=== PATIENT | female | born 1975 | race Hispanic/Latino ===

== ENCOUNTER → 2017-10-05 | Outpatient (CLI) | payer MEDICAID ==
[~2017-10-05] MED LIST: FURO20TA4 PO; LACT10SO PO; LEVO25TA54 PO; PANT20TA12 PO; SPIR25TA PO
== END | disposition home or self-care (01) ==
LOC: RAH 07:58
PROVIDERS: ATTEND Internal Medicine
DX: K74.60 Unspecified cirrhosis of liver (principal)
CPT/HCPCS: 76700; 93975

== ENCOUNTER → 2018-10-12 | Outpatient (CLI) | payer MEDICARE ==
[2018-10-12 09:37] LABS: BASOPHILS % (AUTO) 0.5 % (0.0-5.0); EOSINOPHILS % (AUTO) 2.8 % (0.0-8.0); HEMATOCRIT 35.9 % (36-48); LYMPHOCYTES % (AUTO) 22.4 % (21.0-51.0); MEAN CORPUSCULAR HEMOGLOBIN 31.5 pg (27.0-33.0); MEAN CORPUSCULAR HGB CONC 34.4 g/dL (32.0-36.0); MEAN CORPUSCULAR VOLUME 91.5 fL (79-99); MONOCYTES % (AUTO) 5.2 % (3.0-13.0); NEUTROPHILS % (AUTO) 69.1 % (40.0-77.0); PLATELET COUNT (AUTO) 120 K/uL (130-400); RED BLOOD CELL COUNT(AUTO) 3.92 MIL/uL (4.00-5.50); RED CELL DISTRIBUTION WIDTH 15.2 % (11.0-15.5); WHITE BLOOD COUNT (AUTO) 5.5 K/uL (4.8-10.8)
[2018-10-12 09:46] LABS: ALBUMIN 2.5 g/dL (3.5-5.0); BILIRUBIN,TOTAL 1.4 mg/dL (0.2-1.0); CREATININE 1.1 mg/dL (0.5-1.5); TOTAL PROTEIN, SERUM 7.2 g/dL (6.0-8.3)
[2018-10-12 09:50] LABS: INR 1.01 (0.85-1.15); PROTHROMBIN TIME 10.6 SEC (9.6-11.6)
== END | disposition home or self-care (01) ==
LOC: RAH 07:58
PROVIDERS: ATTEND Internal Medicine Gastroenterology
DX: K74.60 Unspecified cirrhosis of liver (principal); K80.20 Calculus of gallbladder without cholecystitis without obstruction
CPT/HCPCS: 36415; 76700; 80053; 82105; 85025; 85610; 93975

== ENCOUNTER 2019-06-16 07:31 | Day surgery (SDC) | payer MEDICARE ==
[~2019-06-16] VITALS: Ht 160 cm; Wt 98.0 kg
[~2019-06-16 07:31] MED LIST changes: +DICY10I IM; +RIFA550T PO; +SITA100T12 PO; +SODIUM CHLORIDE 0.9% 1000ML 1,000 ML IV ONE; +TRAM50TA4 PO
[2019-06-16 08:15] VITALS: BP 122/68
[2019-06-16] MEDS ORDERED: PROPOFOL 10 MG/ML 20ML VIAL IV ONE (08:32)
[2019-06-16 08:52] VITALS: BP 109/50
[2019-06-16 08:58] VITALS: BP 110/61
[2019-06-16 09:08] VITALS: BP 139/66
[2019-06-16 09:34] LABS: BILIRUBIN,DIRECT 0.3 mg/dL (0.0-0.3); BILIRUBIN,TOTAL 0.8 mg/dL (0.2-1.0); TOTAL PROTEIN, SERUM 5.8 g/dL (6.0-8.3)
== END 2019-06-16 09:38 | disposition home or self-care (01) ==
LOC: DAH 07:31
PROVIDERS: ATTEND Internal Medicine Gastroenterology
DX: R10.10 Upper abdominal pain, unspecified (principal); K80.50 Calculus of bile duct without cholangitis or cholecystitis without obstruction; K74.60 Unspecified cirrhosis of liver; K21.9 Gastro-esophageal reflux disease without esophagitis; E66.9 Obesity, unspecified; E11.9 Type 2 diabetes mellitus without complications; E03.9 Hypothyroidism, unspecified; I85.00 Esophageal varices without bleeding; K29.70 Gastritis, unspecified, without bleeding; Z68.34 Body mass index [BMI] 34.0-34.9, adult; Z98.890 Other specified postprocedural states; Z79.899 Other long term (current) drug therapy
CPT/HCPCS: 36415; 43259; 80076; 81025; 82948; A4215; A4221; A4222; A4223; A4606; A4620; A4663; J2704; J7030

== ENCOUNTER 2019-06-26 08:04 | Day surgery (SDC) | payer MEDICARE ==
[2019-06-26] VITALS (16 sets, daily range): BP systolic 111–141; BP diastolic 53–74
[~2019-06-26] VITALS: Ht 160 cm; Wt 99.8 kg
[~2019-06-26 08:04] MED LIST changes: -DICY10I IM
[2019-06-26] MEDS ORDERED: IOHEXOL-350 50ML VIAL IV ONE (10:28)
[2019-06-26] MEDS ORDERED: INDOMETHACIN 50 MG SUPP.RECT RC SCH (10:30)
[2019-06-26] MEDS ORDERED: ONDANSETRON HCL 4 MG/2 ML VIAL ONE (11:37)
[2019-06-26] MEDS ORDERED: METOCLOPRAMIDE 10 MG/2 ML VIAL ONE (11:42)
== END 2019-06-26 13:30 | disposition home or self-care (01) ==
LOC: DAH 08:04 → ENDO 08:04
PROVIDERS: ATTEND Internal Medicine
DX: K80.50 Calculus of bile duct without cholangitis or cholecystitis without obstruction (principal); K74.60 Unspecified cirrhosis of liver; I85.00 Esophageal varices without bleeding; K29.70 Gastritis, unspecified, without bleeding; E11.9 Type 2 diabetes mellitus without complications; E03.9 Hypothyroidism, unspecified; E66.9 Obesity, unspecified; K21.9 Gastro-esophageal reflux disease without esophagitis; Z98.890 Other specified postprocedural states; Z79.899 Other long term (current) drug therapy; Z68.35 Body mass index [BMI] 35.0-35.9, adult
CPT/HCPCS: 43262; 43264; 74328; 82948; A4215; A4221; A4222; A4223; A4606; A4615; A4663; C1769; C1773; J2405; J2765; J7030; Q9967; 74330

== ENCOUNTER → 2019-11-20 | Outpatient (CLI) | payer MEDICARE ==
[~2019-11-20] MED LIST changes: -SODIUM CHLORIDE 0.9% 1000ML 1,000 ML IV ONE
== END | disposition home or self-care (01) ==
LOC: RAH 10:06
PROVIDERS: ATTEND Internal Medicine Gastroenterology
DX: K43.9 Ventral hernia without obstruction or gangrene (principal); R18.8 Other ascites; R16.1 Splenomegaly, not elsewhere classified
CPT/HCPCS: 76700; 93975

== ENCOUNTER → 2020-01-16 | Outpatient (CLI) | payer MEDICARE ==
[~2020-01-16] MED LIST changes: +ALBUMIN (HUMAN) 25% 200 ML IV SCH
[2020-01-16 09:10] LABS: HEMATOCRIT 32.7 % (36-48); MEAN CORPUSCULAR HEMOGLOBIN 29.6 pg (27.0-33.0); MEAN CORPUSCULAR VOLUME 89.6 fL (79-99); PLATELET COUNT (AUTO) 161 K/uL (130-400); RED BLOOD CELL COUNT(AUTO) 3.65 MIL/uL (4.00-5.50); RED CELL DISTRIBUTION WIDTH 15.9 % (11.0-15.5); WHITE BLOOD COUNT (AUTO) 5.3 K/uL (4.8-10.8)
--- NOTE | 2020-01-16 09:20 | NUR ---
U/S GD PARACENTESIS PROCEDURE PERFORMED BY DR. STEVEN. PUNCTURE SITE LEFT LOWER QUADRANT OF ABDOMEN AND PATIENT TOLERATED PROCEDURE WELL. TOTAL REMOVED 7.9 LITERS OF CLOUDY YELLOW FLUID. END OF PROCEDURE AT 0945. CATHETER REMOVED AND DRESSING APPLIED. NO BLEEDING NOTED. ALBUMIN 25% 50 GRAMS GIVEN DURING PROCEDURE PER [facility] ALBUMIN PROTOCOL. LEFT ANTECUBITAL PIV DC'D, BANDAID APPLIED, DRESSING DRY AND INTACT. DISCHARGE INSTRUCTIONS GIVEN TO PATIENT. PATIENT VERBALIZED UNDERSTANDING. PT DISCHARGED VIA W/C, STABLE, AAO X3 WITH NO C/O PAIN @ 1045. SPECIMEN SENT TO LAB.
[2020-01-16 09:23] LABS: BILIRUBIN,TOTAL 0.8 mg/dL (0.2-1.0); CREATININE 1.7 mg/dL (0.5-1.5); INR 0.94 (0.85-1.15); PROTHROMBIN TIME 10.2 SEC (9.6-11.6); TOTAL PROTEIN, SERUM 6.5 g/dL (6.0-8.3)
[2020-01-16 09:48] LABS: LYMPHOCYTES % (MANUAL) 8 % (22-44); MAN.DIFF COMMENT-IMPRESSION MANUAL DIFFERENTIAL; MONOCYTES % (MANUAL) 4 % (2-9); PLATELET MORPHOLOGY COMMENT ADEQUATE; SEGMENTED NEUTROPHILS % 88 % (40-70)
[2020-01-16 13:53] LABS: APPEARANCE BODY FLUID CLEAR (CLEAR); BODY FLUID RBC 292 /cu. mm.; BODY FLUID WBC 95 /cu. mm.; COLOR,BODY FLUID YELLOW (LT YELLOW); SPECIMENTYPE,BODY FLUID ASCITES
[2020-01-16 13:59] LABS: BF LYMPHOCYTE 32 %; BF MESOTHELIAL 43 %; BF MONOCYTE 16 %
[2020-01-16 14:01] LABS: TOTAL VOLUME,BODY FLUID 7900 mL
== END ==
LOC: RAH 07:49
PROVIDERS: ATTEND Internal Medicine Gastroenterology
DX: R18.8 Other ascites (principal); K74.60 Unspecified cirrhosis of liver; E03.9 Hypothyroidism, unspecified; E11.9 Type 2 diabetes mellitus without complications; K21.9 Gastro-esophageal reflux disease without esophagitis; F17.200 Nicotine dependence, unspecified, uncomplicated; E66.9 Obesity, unspecified; Z90.49 Acquired absence of other specified parts of digestive tract; Z79.82 Long term (current) use of aspirin; Z83.3 Family history of diabetes mellitus; Z82.49 Family history of ischemic heart disease and other diseases of the circulatory system; Z79.899 Other long term (current) drug therapy; Z79.84 Long term (current) use of oral hypoglycemic drugs; Z79.890 Hormone replacement therapy; Z98.890 Other specified postprocedural states
CPT/HCPCS: 36415; 49083; 80053; 85025; 85610; 87071; 87205; 88112; 88305; 89051; A4215; P9046

== ENCOUNTER → 2020-01-30 | Outpatient (CLI) | payer MEDICARE ==
[~2020-01-30] MED LIST changes: +ALBUMIN (HUMAN) 25% 200 ML IV ONE; -ALBUMIN (HUMAN) 25% 200 ML IV SCH; -PANT20TA12 PO; +PANT20TA18 PO
--- NOTE | 2020-01-30 11:50 | NUR ---
U/S GD PARACENTESIS PROCEDURE PERFORMED BY DR. MARS. PUNCTURE SITE LEFT LOWER QUADRANT OF ABDOMEN AND PATIENT TOLERATED PROCEDURE WELL. TOTAL REMOVED 8.2 LITERS OF CLOUDY YELLOW FLUID. END OF PROCEDURE AT 1220. CATHETER REMOVED AND DRESSING APPLIED. NO BLEEDING NOTED. ALBUMIN 25% 50 GRAMS GIVEN DURING PROCEDURE PER [facility] ALBUMIN PROTOCOL. RIGHT HAND PIV DC'D, BANDAID APPLIED, DRESSING DRY AND INTACT. DISCHARGE INSTRUCTIONS GIVEN TO PATIENT. PATIENT VERBALIZED UNDERSTANDING. PT DISCHARGED AMBULATORY, STABLE, AAO X3 WITH NO C/O PAIN. SPECIMEN SENT TO LAB.
[2020-01-30 18:49] LABS: APPEARANCE BODY FLUID CLEAR (CLEAR); COLOR,BODY FLUID YELLOW (LT YELLOW); SPECIMENTYPE,BODY FLUID ASCITES; TOTAL VOLUME,BODY FLUID 8200 mL
[2020-01-30 18:54] LABS: BODY FLUID RBC 84 /cu. mm.; BODY FLUID WBC 107 /cu. mm.
[2020-01-30 19:39] LABS: BF LYMPHOCYTE 59 %; BF MONOCYTE 1 %; BF OTHER CELLS 5
== END ==
LOC: RAH 10:46
PROVIDERS: ATTEND Internal Medicine Gastroenterology
DX: R18.8 Other ascites (principal); K74.60 Unspecified cirrhosis of liver
CPT/HCPCS: 49083; 87071; 87205; 88112; 88305; 89051; A4215; P9046; 96365

== ENCOUNTER → 2020-03-18 | Outpatient (CLI) | payer MEDICARE ==
[~2020-03-18] MED LIST changes: -ALBUMIN (HUMAN) 25% 200 ML IV ONE; +ALBUMIN (HUMAN) 25% 200 ML IV SCH; +PANT20TA12 PO; -PANT20TA18 PO
--- NOTE | 2020-03-18 10:55 | NUR ---
U/S GUIDED PARACENTESIS PROCEDURE PERFORMED BY DR. GR. PUNCTURE SITE LEFT LOWER QUADRANT AND PATIENT TOLERATED PROCEDURE WELL. TOTAL REMOVED 6.2 LITERS OF CLOUDY YELLOW ASCITES FLUID. END OF PROCEDURE AT 1130. CATHETER REMOVED AND DRESSING APPLIED. NO BLEEDING NOTED. ALBUMIN 25% 50 GRAMS GIVEN IV PER ALBUMIN PROTOCOL. RIGHT HAND PIV DCD, BANDAID APPLIED, NO BLEEDING NOTED. DISCHARGE INSTRUCTION GIVEN TO PATIENT AND VERBALIZED UNDERSTANDING. DISCHARGED AMBULATORY @ 1200. AAO X 3 WITH NO C/O PAIN.
[2020-03-18 13:12] LABS: APPEARANCE BODY FLUID CLEAR (CLEAR); BODY FLUID RBC 258 /cu. mm.; BODY FLUID WBC 147 /cu. mm.; COLOR,BODY FLUID YELLOW (LT YELLOW); SPECIMENTYPE,BODY FLUID ASCITES
[2020-03-18 13:13] LABS: TOTAL VOLUME,BODY FLUID 6200 mL
[2020-03-18 14:00] LABS: BF LYMPHOCYTE 31 %; BF MESOTHELIAL 48 %; BF MONOCYTE 7 %
== END | disposition home or self-care (01) ==
LOC: RAH 09:52
PROVIDERS: ATTEND Internal Medicine Gastroenterology
DX: R18.8 Other ascites (principal); K74.60 Unspecified cirrhosis of liver; I85.00 Esophageal varices without bleeding; K29.70 Gastritis, unspecified, without bleeding; K21.9 Gastro-esophageal reflux disease without esophagitis; K43.9 Ventral hernia without obstruction or gangrene; E11.9 Type 2 diabetes mellitus without complications; E03.9 Hypothyroidism, unspecified; Z90.49 Acquired absence of other specified parts of digestive tract; Z79.899 Other long term (current) drug therapy
CPT/HCPCS: 49083; 87071; 87205; 89051; A4215; P9046; 96365

== ENCOUNTER → 2020-03-26 | Outpatient (CLI) | payer MEDICARE ==
--- NOTE | 2020-03-26 10:15 | NUR ---
U/S GUIDED PARACENTESIS PROCEDURE PERFORMED BY DR. BAIRD. PUNCTURE SITE LEFT LOWER QUADRANT AND PATIENT TOLERATED PROCEDURE WELL. TOTAL REMOVED 5.7 LITERS OF CLOUDY YELLOW ASCITES FLUID. END OF PROCEDURE AT 1045. CATHETER REMOVED AND DRESSING APPLIED. NO BLEEDING NOTED. ALBUMIN 25% 50 GRAMS GIVEN IV PER ALBUMIN PROTOCOL. RIGHT HAND PIV DCD, BANDAID APPLIED, NO BLEEDING NOTED. DISCHARGE INSTRUCTION GIVEN TO PATIENT AND VERBALIZED UNDERSTANDING. DISCHARGED AMBULATORY @ 1105. AAO X 3 WITH NO C/O PAIN.
[2020-03-26 10:34] LABS: BASOPHILS % (AUTO) 0.4 % (0.0-5.0); EOSINOPHILS % (AUTO) 1.1 % (0.0-8.0); HEMATOCRIT 32.7 % (36-48); MEAN CORPUSCULAR HEMOGLOBIN 30.3 pg (27.0-33.0); MEAN CORPUSCULAR HGB CONC 33.9 g/dL (32.0-36.0); MEAN CORPUSCULAR VOLUME 89.3 fL (79-99); MONOCYTES % (AUTO) 3.9 % (3.0-13.0); NEUTROPHILS % (AUTO) 83.1 % (40.0-77.0); PLATELET COUNT (AUTO) 145 K/uL (130-400); RED BLOOD CELL COUNT(AUTO) 3.66 MIL/uL (4.00-5.50); RED CELL DISTRIBUTION WIDTH 14.1 % (11.0-15.5); WHITE BLOOD COUNT (AUTO) 5.6 K/uL (4.8-10.8)
[2020-03-26 10:44] LABS: INR 0.97 (0.85-1.15); PROTHROMBIN TIME 10.5 SEC (9.6-11.6)
[2020-03-26 10:49] LABS: ALBUMIN 2.8 g/dL (3.5-5.0); BILIRUBIN,TOTAL 1.7 mg/dL (0.2-1.0); CREATININE 1.3 mg/dL (0.5-1.5); POTASSIUM 3.7 mmol/L (3.5-5.1)
[2020-03-26 15:13] LABS: APPEARANCE BODY FLUID CLEAR (CLEAR); BODY FLUID WBC 148 /cu. mm.; COLOR,BODY FLUID YELLOW (LT YELLOW); SPECIMENTYPE,BODY FLUID ASCITES; TOTAL VOLUME,BODY FLUID 5700 mL
[2020-03-26 15:14] LABS: BODY FLUID RBC 225 /cu. mm.
[2020-03-26 15:47] LABS: BF LYMPHOCYTE 41 %; BF OTHER CELLS 15
== END ==
LOC: RAH 09:33
PROVIDERS: ATTEND Internal Medicine Gastroenterology
DX: R18.8 Other ascites (principal); K74.60 Unspecified cirrhosis of liver; E03.9 Hypothyroidism, unspecified; K21.9 Gastro-esophageal reflux disease without esophagitis; E11.9 Type 2 diabetes mellitus without complications; E66.9 Obesity, unspecified; F17.200 Nicotine dependence, unspecified, uncomplicated; K43.9 Ventral hernia without obstruction or gangrene; Z79.899 Other long term (current) drug therapy; Z98.890 Other specified postprocedural states; Z72.89 Other problems related to lifestyle; Z83.3 Family history of diabetes mellitus; Z82.49 Family history of ischemic heart disease and other diseases of the circulatory system; Z90.49 Acquired absence of other specified parts of digestive tract; Z87.19 Personal history of other diseases of the digestive system; Z68.34 Body mass index [BMI] 34.0-34.9, adult; Z79.84 Long term (current) use of oral hypoglycemic drugs
CPT/HCPCS: 36415; 49083; 80053; 85025; 85610; 87071; 87205; 89051; A4215; P9046; 96365

== ENCOUNTER → 2020-04-02 | Outpatient (CLI) | payer MEDICARE ==
--- NOTE | 2020-04-02 10:20 | NUR ---
U/S GUIDED PARACENTESIS PROCEDURE PERFORMED BY DR. BAIRD. PUNCTURE SITE RIGHT LOWER QUADRANT AND PATIENT TOLERATED PROCEDURE WELL. TOTAL REMOVED 2.1 LITERS OF YELLOW CLOUDY ASCITES FLUID. END OF PROCEDURE AT 1045. CATHETER REMOVED AND DRESSING APPLIED. NO BLEEDING NOTED. ALBUMIN 25% 50 GRAMS GIVEN IV PER ALBUMIN PROTOCOL. RIGHT HAND PIV DC'D, SITE ASYMPTOMATIC. SPECIMEN SEND TO LAB
[2020-04-02 13:51] LABS: APPEARANCE BODY FLUID CLEAR (CLEAR); BODY FLUID WBC 171 /cu. mm.; COLOR,BODY FLUID YELLOW (LT YELLOW); SPECIMENTYPE,BODY FLUID ASCITES; TOTAL VOLUME,BODY FLUID 2100 mL
[2020-04-02 13:52] LABS: BODY FLUID RBC 198 /cu. mm.
[2020-04-02 13:56] LABS: BF LYMPHOCYTE 52 %; BF MESOTHELIAL 35 %
== END ==
LOC: RAH 09:19
PROVIDERS: ATTEND Internal Medicine Gastroenterology
DX: R18.8 Other ascites (principal); K74.60 Unspecified cirrhosis of liver; F17.200 Nicotine dependence, unspecified, uncomplicated; E03.9 Hypothyroidism, unspecified; K21.9 Gastro-esophageal reflux disease without esophagitis; E11.9 Type 2 diabetes mellitus without complications; K43.9 Ventral hernia without obstruction or gangrene; E66.9 Obesity, unspecified; Z83.3 Family history of diabetes mellitus; Z82.49 Family history of ischemic heart disease and other diseases of the circulatory system; Z68.34 Body mass index [BMI] 34.0-34.9, adult; Z98.890 Other specified postprocedural states; Z87.19 Personal history of other diseases of the digestive system; Z90.49 Acquired absence of other specified parts of digestive tract; Z72.89 Other problems related to lifestyle; Z79.01 Long term (current) use of anticoagulants; Z79.84 Long term (current) use of oral hypoglycemic drugs; Z79.890 Hormone replacement therapy
CPT/HCPCS: 49083; 87071; 87205; 89051; A4215; P9046

== ENCOUNTER → 2020-04-12 | Outpatient (CLI) | payer MEDICARE ==
[~2020-04-12] MED LIST changes: +ALBUMIN (HUMAN) 25% 200 ML IV PRN; -ALBUMIN (HUMAN) 25% 200 ML IV SCH
--- NOTE | 2020-04-12 13:14 | NUR ---
U/S GUIDED PARACENTESIS PROCEDURE PERFORMED BY DR. Joey MARS. PUNCTURE SITE LEFT LOWER QUADRANT AND PATIENT TOLERATED PROCEDURE WELL. TOTAL REMOVED 7.5 LITERS OF YELLOW CLOUDY ASCITES FLUID. END OF PROCEDURE AT 1045. CATHETER REMOVED AND DRESSING APPLIED. NO BLEEDING NOTED. ALBUMIN 25% 50 GRAMS GIVEN IV PER ALBUMIN PROTOCOL. RIGHT HAND PIV DC'D, SITE ASYMPTOMATIC. SPECIMEN SEND TO LAB. DISCHARGED AT 1115 VIA AMBULATION.
[2020-04-12 14:04] LABS: SPECIMENTYPE,BODY FLUID ASCITES
[2020-04-12 14:05] LABS: APPEARANCE BODY FLUID SLIGHTLY CLOUDY (CLEAR); COLOR,BODY FLUID YELLOW (LT YELLOW)
[2020-04-12 14:08] LABS: TOTAL VOLUME,BODY FLUID 7500 mL
[2020-04-12 14:09] LABS: BODY FLUID WBC 180 /cu. mm.
[2020-04-12 14:10] LABS: BODY FLUID RBC 608 /cu. mm.
[2020-04-12 14:14] LABS: BF LYMPHOCYTE 43 %; BF MONOCYTE 14 %
== END | disposition home or self-care (01) ==
LOC: RAH 09:48
PROVIDERS: ATTEND Internal Medicine Gastroenterology
DX: R18.8 Other ascites (principal); K74.60 Unspecified cirrhosis of liver
CPT/HCPCS: 49083; 87071; 87205; 89051; A4215

== ENCOUNTER → 2020-04-24 | Outpatient (CLI) | payer MEDICARE ==
[~2020-04-24] MED LIST changes: -ALBUMIN (HUMAN) 25% 200 ML IV PRN; +ALBUMIN (HUMAN) 25% 200 ML IV SCH; -PANT20TA12 PO; +PANT20TA18 PO
--- NOTE | 2020-04-24 10:15 | NUR ---
U/S GUIDED PARACENTESIS PROCEDURE PERFORMED BY DR. Michaelle BERNARD. PUNCTURE SITE RIGHT LOWER QUADRANT AND PATIENT TOLERATED PROCEDURE WELL. TOTAL REMOVED 4.2 LITERS OF YELLOW CLOUDY ASCITES FLUID. END OF PROCEDURE AT 0945. CATHETER REMOVED AND DRESSING APPLIED. NO BLEEDING NOTED. ALBUMIN 25% 25 GRAMS GIVEN IV PER ALBUMIN PROTOCOL. RIGHT HAND PIV DC'D, SITE ASYMPTOMATIC. SPECIMEN SEND TO LAB. DISCHARGED AT 1015 VIA AMBULATION
[2020-04-24 13:49] LABS: APPEARANCE BODY FLUID CLOUDY (CLEAR); BODY FLUID RBC 442 /cu. mm.; BODY FLUID WBC 175 /cu. mm.; COLOR,BODY FLUID YELLOW (LT YELLOW); SPECIMENTYPE,BODY FLUID ASCITES; TOTAL VOLUME,BODY FLUID 4200 mL
[2020-04-24 14:29] LABS: BF LYMPHOCYTE 18 %; BF MESOTHELIAL 68 %; BF MONOCYTE 6 %
== END ==
LOC: RAH 10:00
PROVIDERS: ATTEND Internal Medicine Gastroenterology
DX: R18.8 Other ascites (principal)
CPT/HCPCS: 49083; 87071; 87205; 89051; A4215; P9046; 96365

== ENCOUNTER → 2020-04-30 | Outpatient (CLI) | payer MEDICARE ==
[2020-04-30 09:10] LABS: BASOPHILS % (AUTO) 0.2 % (0.0-5.0); EOSINOPHILS % (AUTO) 1.8 % (0.0-8.0); LYMPHOCYTES % (AUTO) 11.9 % (21.0-51.0); MEAN CORPUSCULAR HEMOGLOBIN 30.5 pg (27.0-33.0); MEAN CORPUSCULAR HGB CONC 34.8 g/dL (32.0-36.0); MEAN CORPUSCULAR VOLUME 87.6 fL (79-99); MONOCYTES % (AUTO) 4.6 % (3.0-13.0); NEUTROPHILS % (AUTO) 80.8 % (40.0-77.0); PLATELET COUNT (AUTO) 114 K/uL (130-400); RED BLOOD CELL COUNT(AUTO) 3.54 MIL/uL (4.00-5.50); RED CELL DISTRIBUTION WIDTH 14.9 % (11.0-15.5); WHITE BLOOD COUNT (AUTO) 4.4 K/uL (4.8-10.8)
--- NOTE | 2020-04-30 09:20 | NUR ---
U/S GUIDED PARACENTESIS PROCEDURE PERFORMED BY DR. BLUE. PUNCTURE SITE LEFT LOWER QUADRANT AND PATIENT TOLERATED PROCEDURE WELL. TOTAL REMOVED 4.9 LITERS OF YELLOW CLOUDY ASCITES FLUID. END OF PROCEDURE AT 0945. CATHETER REMOVED AND DRESSING APPLIED. NO BLEEDING NOTED. ALBUMIN 25% 50 GRAMS GIVEN IV PER ALBUMIN PROTOCOL. LEFT ANTECUBITAL PIV DC'D, BANDAID APPLIED, DRESSING DRY AND INTACT. DISCHARGE INSTRUCTIONS GIVEN TO PATIENT. PATIENT VERBALIZED UNDERSTANDING. PT DISCHARGED @ 1005. PT STABLE, AAO X 3 WITH NO C/O PAIN.
[2020-04-30 09:22] LABS: INR 0.92 (0.85-1.15)
[2020-04-30 09:28] LABS: ALBUMIN 2.7 g/dL (3.5-5.0); BILIRUBIN,TOTAL 1.3 mg/dL (0.2-1.0); CREATININE 1.5 mg/dL (0.5-1.5); POTASSIUM 3.8 mmol/L (3.5-5.1); TOTAL PROTEIN, SERUM 6.5 g/dL (6.0-8.3)
[2020-04-30 13:05] LABS: BF LYMPHOCYTE 17 %; BF MESOTHELIAL 70 %; BF MONOCYTE 4 %
[2020-04-30 13:06] LABS: APPEARANCE BODY FLUID CLEAR (CLEAR); BODY FLUID RBC 492 /cu. mm.; BODY FLUID WBC 197 /cu. mm.; COLOR,BODY FLUID YELLOW (LT YELLOW); SPECIMENTYPE,BODY FLUID ASCITES
[2020-04-30 13:12] LABS: TOTAL VOLUME,BODY FLUID 4900 mL
== END ==
LOC: RAH 08:35
PROVIDERS: ATTEND Internal Medicine Gastroenterology
DX: R18.8 Other ascites (principal)
CPT/HCPCS: 36415; 49083; 80053; 85025; 85610; 87071; 87205; 89051; A4215; P9046; 96365

== ENCOUNTER → 2020-05-07 | Outpatient (CLI) | payer MEDICARE ==
[~2020-05-07] MED LIST changes: +ALBUMIN (HUMAN) 25% 200 ML IV ONE; -ALBUMIN (HUMAN) 25% 200 ML IV SCH
--- NOTE | 2020-05-07 09:35 | NUR ---
U/S GUIDED PARACENTESIS PROCEDURE PERFORMED BY DR. MARS. PUNCTURE SITE LEFT LOWER QUADRANT AND PATIENT TOLERATED PROCEDURE WELL. TOTAL REMOVED 4.2 LITERS OF YELLOW CLOUDY ASCITES FLUID. END OF PROCEDURE AT 0950. CATHETER REMOVED AND DRESSING APPLIED. NO BLEEDING NOTED. ALBUMIN 25% 50 GRAMS GIVEN IV PER ALBUMIN PROTOCOL. LEFT ANTECUBITAL PIV DC'D, BANDAID APPLIED, DRESSING DRY AND INTACT. DISCHARGE INSTRUCTIONS GIVEN TO PATIENT. PATIENT VERBALIZED UNDERSTANDING. PT DISCHARGED AMBULATORY @ 1020 PT STABLE, AAO X 3 WITH NO C/O PAIN.
[2020-05-07 14:24] LABS: APPEARANCE BODY FLUID CLEAR (CLEAR); COLOR,BODY FLUID YELLOW (LT YELLOW); SPECIMENTYPE,BODY FLUID ASCITES
[2020-05-07 14:25] LABS: BODY FLUID RBC 261 /cu. mm.; BODY FLUID WBC 277 /cu. mm.; TOTAL VOLUME,BODY FLUID 4200 mL
[2020-05-07 14:35] LABS: BF LYMPHOCYTE 18 %; BF MESOTHELIAL 43 %; BF MONOCYTE 8 %
== END | disposition home or self-care (01) ==
LOC: RAH 08:59
PROVIDERS: ATTEND Internal Medicine Gastroenterology
DX: R18.8 Other ascites (principal); K74.60 Unspecified cirrhosis of liver; E03.9 Hypothyroidism, unspecified; E11.9 Type 2 diabetes mellitus without complications; E66.9 Obesity, unspecified; K21.9 Gastro-esophageal reflux disease without esophagitis; K43.9 Ventral hernia without obstruction or gangrene; F17.200 Nicotine dependence, unspecified, uncomplicated; Z90.49 Acquired absence of other specified parts of digestive tract; Z98.890 Other specified postprocedural states; Z79.899 Other long term (current) drug therapy; Z79.84 Long term (current) use of oral hypoglycemic drugs; Z72.89 Other problems related to lifestyle; Z79.890 Hormone replacement therapy; Z68.34 Body mass index [BMI] 34.0-34.9, adult
CPT/HCPCS: 49083; 87071; 87205; 89051; A4215; P9046; 96365

== ENCOUNTER → 2020-05-17 | Outpatient (CLI) | payer MEDICARE ==
[~2020-05-17] MED LIST changes: -ALBUMIN (HUMAN) 25% 200 ML IV ONE
[2020-05-17 09:02] LABS: HEMATOCRIT 34.9 % (36-48); MEAN CORPUSCULAR HEMOGLOBIN 30.8 pg (27.0-33.0); MEAN CORPUSCULAR VOLUME 88.1 fL (79-99); PLATELET COUNT (AUTO) 165 K/uL (130-400); RED BLOOD CELL COUNT(AUTO) 3.96 MIL/uL (4.00-5.50); RED CELL DISTRIBUTION WIDTH 14.4 % (11.0-15.5); WHITE BLOOD COUNT (AUTO) 8.3 K/uL (4.8-10.8)
[2020-05-17 09:20] LABS: INR 0.95 (0.85-1.15); PROTHROMBIN TIME 10.3 SEC (9.6-11.6)
[2020-05-17 09:21] LABS: ALBUMIN 2.6 g/dL (3.5-5.0); BILIRUBIN,TOTAL 2.2 mg/dL (0.2-1.0); CREATININE 1.3 mg/dL (0.5-1.5); POTASSIUM 4.3 mmol/L (3.5-5.1); TOTAL PROTEIN, SERUM 6.5 g/dL (6.0-8.3)
--- NOTE | 2020-05-17 09:30 | NUR ---
U/S GUIDED PARACENTESIS PROCEDURE PERFORMED BY DR. MARS. PUNCTURE SITE RIGHT UPPER QUADRANT AND PATIENT TOLERATED PROCEDURE WELL. TOTAL REMOVED 6.0 LITERS OF YELLOW CLOUDY ASCITES FLUID. END OF PROCEDURE AT 1005. CATHETER REMOVED AND DRESSING APPLIED. NO BLEEDING NOTED. ALBUMIN 25% 50 GRAMS GIVEN IV PER ALBUMIN PROTOCOL. LEFT UPPER ARM PIV DC'D, BANDAID APPLIED, DRESSING DRY AND INTACT. DISCHARGE INSTRUCTIONS GIVEN TO PATIENT. PATIENT VERBALIZED UNDERSTANDING. PT DISCHARGED VIA AMBULATORY @ 1025. PT STABLE, AAO X 3 WITH NO C/O PAIN.
[2020-05-17 09:45] LABS: BASOPHILS % (MANUAL) 1 % (0-2); EOSINOPHILS % (MANUAL) 3 % (1-6); LYMPHOCYTES % (MANUAL) 13 % (22-44); MAN.DIFF COMMENT-IMPRESSION MANUAL DIFFERENTIAL; MONOCYTES % (MANUAL) 5 % (2-9); PLATELET MORPHOLOGY COMMENT ADEQUATE; SEGMENTED NEUTROPHILS % 78 % (40-70)
[2020-05-17] MEDS: ALBUMIN (HUMAN) 25% 200 ML IV SCH (10:52)
[2020-05-17 15:16] LABS: SPECIMENTYPE,BODY FLUID ASCITES
[2020-05-17 15:17] LABS: APPEARANCE BODY FLUID CLEAR (CLEAR); COLOR,BODY FLUID YELLOW (LT YELLOW)
[2020-05-17 15:18] LABS: TOTAL VOLUME,BODY FLUID 6000 mL
[2020-05-17 15:28] LABS: BODY FLUID WBC 113 /cu. mm.
[2020-05-17 15:29] LABS: BODY FLUID RBC 500 /cu. mm.
[2020-05-17 15:49] LABS: BF LYMPHOCYTE 37 %; BF MESOTHELIAL 28 %
== END | disposition home or self-care (01) ==
LOC: RAH 08:10
PROVIDERS: ATTEND Internal Medicine Gastroenterology
DX: R18.8 Other ascites (principal)
CPT/HCPCS: 36415; 49083; 80053; 85025; 85610; 87071; 87205; 89051; 96365; A4215; P9046

== ENCOUNTER → 2020-05-21 | Outpatient (CLI) | payer MEDICARE ==
[~2020-05-21] MED LIST changes: +ALBUMIN (HUMAN) 25% 200 ML IV SCH
--- NOTE | 2020-05-21 10:00 | NUR ---
U/S GUIDED PARACENTESIS PROCEDURE PERFORMED BY . PUNCTURE SITE LEFT LOWER QUADRANT AND PATIENT TOLERATED PROCEDURE WELL. TOTAL REMOVED 4.2LITERS OF YELLOW CLOUDY ASCITES FLUID. END OF PROCEDURE AT 1035. CATHETER REMOVED AND DRESSING APPLIED. NO BLEEDING NOTED. ALBUMIN 25% 50 GRAMS GIVEN IV PER ALBUMIN PROTOCOL. LEFT HAND PIV DC'D, BANDAID APPLIED, DRESSING DRY AND INTACT. DISCHARGE INSTRUCTIONS GIVEN TO PATIENT. PATIENT VERBALIZED UNDERSTANDING. PT DISCHARGED VIA W/C @1110 PT STABLE, AAO X 3 WITH NO C/O PAIN.
[2020-05-21 14:18] LABS: APPEARANCE BODY FLUID CLEAR (CLEAR); BODY FLUID WBC 275 /cu. mm.; COLOR,BODY FLUID YELLOW (LT YELLOW); SPECIMENTYPE,BODY FLUID ASCITES; TOTAL VOLUME,BODY FLUID 4200 mL
[2020-05-21 14:19] LABS: BODY FLUID RBC 925 /cu. mm.
[2020-05-21 14:22] LABS: BF LYMPHOCYTE 27 %; BF MESOTHELIAL 18 %; BF MONOCYTE 42 %
== END | disposition home or self-care (01) ==
LOC: RAH 08:45
PROVIDERS: ATTEND Internal Medicine Gastroenterology
DX: R18.8 Other ascites (principal)
CPT/HCPCS: 49083; 87071; 87205; 89051; 96365; A4215; P9046

== ENCOUNTER → 2020-05-29 | Outpatient (CLI) | payer MEDICARE ==
--- NOTE | 2020-05-29 09:15 | NUR ---
U/S GUIDED PARACENTESIS PROCEDURE PERFORMED BY DR. GR. PUNCTURE SITE LEFT LOWER QUADRANT AND PATIENT TOLERATED PROCEDURE WELL. TOTAL REMOVED 5.3 LITERS OF YELLOW CLOUDY ASCITES FLUID. END OF PROCEDURE AT 0945. CATHETER REMOVED AND DRESSING APPLIED. NO BLEEDING NOTED. ALBUMIN 25% 50 GRAMS GIVEN IV PER ALBUMIN PROTOCOL. RIGHT HAND PIV DC'D, BANDAID APPLIED, DRESSING DRY AND INTACT. DISCHARGE INSTRUCTIONS GIVEN TO PATIENT. PATIENT VERBALIZED UNDERSTANDING. PT DISCHARGED AMBULATORY @ 1005. PT STABLE, AAO X 3 WITH NO C/O PAIN.
[2020-05-29 14:13] LABS: APPEARANCE BODY FLUID SLIGHTLY CLOUDY (CLEAR); BODY FLUID WBC 107 /cu. mm.; COLOR,BODY FLUID YELLOW (LT YELLOW); SPECIMENTYPE,BODY FLUID ASCITES; TOTAL VOLUME,BODY FLUID 5300 mL
[2020-05-29 14:14] LABS: BODY FLUID RBC 281 /cu. mm.
[2020-05-29 14:17] LABS: BF LYMPHOCYTE 77 %; BF MONOCYTE 17 %
== END ==
LOC: RAH 08:25
PROVIDERS: ATTEND Internal Medicine Gastroenterology
DX: R18.8 Other ascites (principal); K74.60 Unspecified cirrhosis of liver; I85.00 Esophageal varices without bleeding; K43.9 Ventral hernia without obstruction or gangrene; R34 Anuria and oliguria; I10 Essential (primary) hypertension; E03.9 Hypothyroidism, unspecified; K21.9 Gastro-esophageal reflux disease without esophagitis; E11.9 Type 2 diabetes mellitus without complications; Z79.899 Other long term (current) drug therapy
CPT/HCPCS: 49083; 87071; 87205; 89051; A4215; P9046; 96365

== ENCOUNTER → 2020-06-05 | Outpatient (CLI) | payer MEDICARE ==
--- NOTE | 2020-06-05 10:00 | NUR ---
U/S GUIDED PARACENTESIS PROCEDURE PERFORMED BY DR. Michaelle BERNARD. PUNCTURE SITE LEFT LOWER QUADRANT AND PATIENT TOLERATED PROCEDURE WELL. TOTAL REMOVED 4.5 LITERS OF YELLOW CLOUDY ASCITES FLUID. END OF PROCEDURE AT 0930. CATHETER REMOVED AND DRESSING APPLIED. NO BLEEDING NOTED. ALBUMIN 25% 50 GRAMS GIVEN IV PER ALBUMIN PROTOCOL. RIGHT ANTECUBITAL PIV DC'D, BANDAID APPLIED, DRESSING DRY AND INTACT. DISCHARGE INSTRUCTIONS GIVEN TO PATIENT. PATIENT VERBALIZED UNDERSTANDING. PT DISCHARGED AMBULATORY @ 1000. PT STABLE, AAO X 3 WITH NO C/O PAIN.
[2020-06-05 13:49] LABS: APPEARANCE BODY FLUID CLEAR (CLEAR); COLOR,BODY FLUID YELLOW (LT YELLOW); SPECIMENTYPE,BODY FLUID ASCITES; TOTAL VOLUME,BODY FLUID 4500 mL
[2020-06-05 13:54] LABS: BODY FLUID RBC 258 /cu. mm.; BODY FLUID WBC 247 /cu. mm.
[2020-06-05 14:16] LABS: BF LYMPHOCYTE 22 %; BF MESOTHELIAL 53 %; BF MONOCYTE 13 %
== END ==
LOC: RAH 08:15
PROVIDERS: ATTEND Internal Medicine Gastroenterology
DX: R18.8 Other ascites (principal)
CPT/HCPCS: 49083; 87071; 87205; 89051; A4215; P9046; 96365

== ENCOUNTER → 2020-06-12 | Outpatient (CLI) | payer MEDICARE ==
--- NOTE | 2020-06-12 09:20 | NUR ---
U/S GUIDED PARACENTESIS PROCEDURE PERFORMED BY DR. ALICIA. PUNCTURE SITE RIGHT LOWER QUADRANT AND PATIENT TOLERATED PROCEDURE WELL. TOTAL REMOVED 4.8 LITERS OF YELLOW CLOUDY ASCITES FLUID. END OF PROCEDURE AT 1030. CATHETER REMOVED AND DRESSING APPLIED. NO BLEEDING NOTED. ALBUMIN 25% 50 GRAMS GIVEN IV PER ALBUMIN PROTOCOL. RIGHT WRIST PIV DC'D, BANDAID APPLIED, DRESSING DRY AND INTACT. DISCHARGE INSTRUCTIONS GIVEN TO PATIENT. PATIENT VERBALIZED UNDERSTANDING. PT DISCHARGED AMBULATORY @ 1100 PT STABLE, AAO X 3 WITH NO C/O PAIN.
[2020-06-12 14:49] LABS: SPECIMENTYPE,BODY FLUID ASCITES
[2020-06-12 14:50] LABS: APPEARANCE BODY FLUID SLIGHTLY CLOUDY (CLEAR); COLOR,BODY FLUID YELLOW (LT YELLOW); TOTAL VOLUME,BODY FLUID 4800 mL
[2020-06-12 14:51] LABS: BODY FLUID RBC 439 /cu. mm.; BODY FLUID WBC 218 /cu. mm.
[2020-06-12 14:55] LABS: BF LYMPHOCYTE 50 %; BF MONOCYTE 5 %
== END | disposition home or self-care (01) ==
LOC: RAH 08:14
PROVIDERS: ATTEND Internal Medicine Gastroenterology
DX: R18.8 Other ascites (principal)
CPT/HCPCS: 49083; 87071; 87205; 89051; 96365; A4215; P9046

== ENCOUNTER → 2020-06-18 | Outpatient (CLI) | payer MEDICARE ==
--- NOTE | 2020-06-18 12:00 | NUR ---
U/S GUIDED PARACENTESIS PROCEDURE PERFORMED BY DR. Michaelle BERNARD. PUNCTURE SITE RIGHT LOWER QUADRANT AND PATIENT TOLERATED PROCEDURE WELL. TOTAL REMOVED 2 LITERS OF YELLOW CLOUDY ASCITES FLUID. END OF PROCEDURE AT 1125. CATHETER REMOVED AND DRESSING APPLIED. NO BLEEDING NOTED. ALBUMIN 25% 50 GRAMS GIVEN IV PER ALBUMIN PROTOCOL. RIGHT AND PIV DC'D, BANDAID APPLIED, DRESSING DRY AND INTACT. DISCHARGE INSTRUCTIONS GIVEN TO PATIENT. PATIENT VERBALIZED UNDERSTANDING. PT DISCHARGED AMBULATORY @ 1200 PT STABLE, AAO X 3 WITH NO C/O PAIN.
[2020-06-18 18:03] LABS: COLOR,BODY FLUID YELLOW (LT YELLOW); SPECIMENTYPE,BODY FLUID ASCITES; TOTAL VOLUME,BODY FLUID 2000 mL
[2020-06-18 18:04] LABS: BODY FLUID RBC 419 /cu. mm.; BODY FLUID WBC 167 /cu. mm.
[2020-06-18 18:05] LABS: APPEARANCE BODY FLUID SLIGHTLY CLOUDY (CLEAR)
[2020-06-18 18:44] LABS: BF LYMPHOCYTE 72 %; BF MONOCYTE 1 %
== END | disposition home or self-care (01) ==
LOC: RAH 10:19
PROVIDERS: ATTEND Internal Medicine Gastroenterology
DX: R18.8 Other ascites (principal)
CPT/HCPCS: 49083; 87071; 87205; 89051; 96365; A4215; P9046

== ENCOUNTER → 2020-06-25 | Outpatient (CLI) | payer MEDICARE ==
[2020-06-25 11:14] LABS: MEAN CORPUSCULAR HEMOGLOBIN 30.7 pg (27.0-33.0); MEAN CORPUSCULAR HGB CONC 34.7 g/dL (32.0-36.0); MEAN CORPUSCULAR VOLUME 88.6 fL (79-99); PLATELET COUNT (AUTO) 131 K/uL (130-400); RED BLOOD CELL COUNT(AUTO) 3.61 MIL/uL (4.00-5.50); RED CELL DISTRIBUTION WIDTH 14.1 % (11.0-15.5); WHITE BLOOD COUNT (AUTO) 6.3 K/uL (4.8-10.8)
[2020-06-25 11:27] LABS: ALBUMIN 3.1 g/dL (3.5-5.0); BILIRUBIN,TOTAL 2.2 mg/dL (0.2-1.0); CREATININE 1.6 mg/dL (0.5-1.5); POTASSIUM 3.6 mmol/L (3.5-5.1); TOTAL PROTEIN, SERUM 6.9 g/dL (6.0-8.3)
[2020-06-25 11:44] LABS: INR 0.94 (0.85-1.15); PROTHROMBIN TIME 10.2 SEC (9.6-11.6)
--- NOTE | 2020-06-25 12:00 | NUR ---
U/S GUIDED PARACENTESIS PROCEDURE PERFORMED BY DR. Destiney BLUE. PUNCTURE SITE RIGHT LOWER QUADRANT AND PATIENT TOLERATED PROCEDURE WELL. TOTAL REMOVED 6 LITERS OF YELLOW CLOUDY ASCITES FLUID. END OF PROCEDURE AT 1125. CATHETER REMOVED AND DRESSING APPLIED. NO BLEEDING NOTED. ALBUMIN 25% 50 GRAMS GIVEN IV PER ALBUMIN PROTOCOL. LEFT ANTECUBITAL PIV DC'D, BANDAID APPLIED, DRESSING DRY AND INTACT. DISCHARGE INSTRUCTIONS GIVEN TO PATIENT. PATIENT VERBALIZED UNDERSTANDING. PT DISCHARGED AMBULATORY @ 1200 PT STABLE, AAO X 3 WITH NO C/O PAIN.
[2020-06-25 12:14] LABS: LYMPHOCYTES % (MANUAL) 10 % (22-44); MAN.DIFF COMMENT-IMPRESSION MANUAL DIFFERENTIAL; MONOCYTES % (MANUAL) 5 % (2-9); SEGMENTED NEUTROPHILS % 85 % (40-70)
[2020-06-25 12:16] LABS: PLATELET MORPHOLOGY COMMENT ADEQUATE
[2020-06-25 16:27] LABS: APPEARANCE BODY FLUID SLIGHTLY CLOUDY (CLEAR); BODY FLUID WBC 150 /cu. mm.; COLOR,BODY FLUID YELLOW (LT YELLOW); SPECIMENTYPE,BODY FLUID ASCITES; TOTAL VOLUME,BODY FLUID 6000 mL
[2020-06-25 16:28] LABS: BODY FLUID RBC 760 /cu. mm.
[2020-06-25 17:02] LABS: BF LYMPHOCYTE 43 %; BF MESOTHELIAL 42 %
== END ==
LOC: RAH 09:58
PROVIDERS: ATTEND Internal Medicine Gastroenterology
DX: R18.8 Other ascites (principal)
CPT/HCPCS: 36415; 49083; 80053; 85025; 85610; 87071; 87205; 89051; A4215; P9046

== ENCOUNTER → 2020-07-02 | Outpatient (CLI) | payer MEDICARE ==
[~2020-07-02] MED LIST changes: +ALBUMIN (HUMAN) 25% 200 ML IV ONE; -ALBUMIN (HUMAN) 25% 200 ML IV SCH
--- NOTE | 2020-07-02 09:25 | NUR ---
U/S GUIDED PARACENTESIS PROCEDURE PERFORMED BY DR. BERNARD. PUNCTURE SITE RIGHT UPPER LOWER QUADRANT AND PATIENT TOLERATED PROCEDURE WELL. TOTAL REMOVED 5.6 LITERS OF YELLOW CLOUDY ASCITES FLUID. END OF PROCEDURE AT 1015. CATHETER REMOVED AND DRESSING APPLIED. NO BLEEDING NOTED. ALBUMIN 25% 50 GRAMS GIVEN IV PER ALBUMIN PROTOCOL. RIGHT HAND PIV DC'D, BANDAID APPLIED, DRESSING DRY AND INTACT. DISCHARGE INSTRUCTIONS GIVEN TO PATIENT. PATIENT VERBALIZED UNDERSTANDING. PT DISCHARGED AMBULATORY. PT STABLE, AAO X 3 WITH NO C/O PAIN.
[2020-07-02 17:23] LABS: SPECIMENTYPE,BODY FLUID ASCITES
[2020-07-02 17:24] LABS: APPEARANCE BODY FLUID CLEAR (CLEAR); BODY FLUID RBC 239 /cu. mm.; BODY FLUID WBC 110 /cu. mm.; COLOR,BODY FLUID YELLOW (LT YELLOW); TOTAL VOLUME,BODY FLUID 5600 mL
[2020-07-02 18:25] LABS: BF LYMPHOCYTE 46 %; BF MESOTHELIAL 3 %; BF OTHER CELLS 2
== END ==
LOC: RAH 08:19
PROVIDERS: ATTEND Internal Medicine Gastroenterology
DX: R18.8 Other ascites (principal); K74.60 Unspecified cirrhosis of liver; E03.9 Hypothyroidism, unspecified; K21.9 Gastro-esophageal reflux disease without esophagitis; E11.9 Type 2 diabetes mellitus without complications; E66.9 Obesity, unspecified; F17.200 Nicotine dependence, unspecified, uncomplicated; K43.9 Ventral hernia without obstruction or gangrene; Z79.899 Other long term (current) drug therapy; Z90.89 Acquired absence of other organs; Z98.890 Other specified postprocedural states; Z83.3 Family history of diabetes mellitus; Z82.49 Family history of ischemic heart disease and other diseases of the circulatory system; Z68.33 Body mass index [BMI] 33.0-33.9, adult; Z72.89 Other problems related to lifestyle
CPT/HCPCS: 49083; 87071; 87205; 89051; A4215; 96365; P9046

== ENCOUNTER → 2020-07-16 | Outpatient (CLI) | payer MEDICARE ==
--- NOTE | 2020-07-16 09:35 | NUR ---
U/S GUIDED PARACENTESIS PROCEDURE PERFORMED BY DR. BLUE. PUNCTURE SITE LEFT LOWER QUADRANT AND PATIENT TOLERATED PROCEDURE WELL. TOTAL REMOVED 6.2 LITERS OF YELLOW CLOUDY ASCITES FLUID. END OF PROCEDURE AT 1010 CATHETER REMOVED AND DRESSING APPLIED. NO BLEEDING NOTED. ALBUMIN 25% 50 GRAMS GIVEN IV PER ALBUMIN PROTOCOL. RIGHT FOREARM PIV DC'D, BANDAID APPLIED, DRESSING DRY AND INTACT. DISCHARGE INSTRUCTIONS GIVEN TO PATIENT. PATIENT VERBALIZED UNDERSTANDING. PT DISCHARGED VIA W/C @ 1040. PT STABLE, AAO X 3 WITH NO C/O PAIN.
[2020-07-16 13:57] LABS: SPECIMENTYPE,BODY FLUID ASCITES
[2020-07-16 13:58] LABS: APPEARANCE BODY FLUID CLEAR (CLEAR); BODY FLUID RBC 264 /cu. mm.; BODY FLUID WBC 164 /cu. mm.; COLOR,BODY FLUID YELLOW (LT YELLOW); TOTAL VOLUME,BODY FLUID 6200 mL
[2020-07-16 17:19] LABS: BF LYMPHOCYTE 43 %; BF MESOTHELIAL 1 %; BF MONOCYTE 7 %; BF OTHER CELLS 6
== END | disposition home or self-care (01) ==
LOC: RAH 08:48
PROVIDERS: ATTEND Internal Medicine Gastroenterology
DX: R18.8 Other ascites (principal)
CPT/HCPCS: 49083; 87071; 87205; 89051; 96365; A4215; P9046

== ENCOUNTER 2020-07-20 15:54 | Emergency (ER) | payer MEDICARE ==
[~2020-07-20 15:54] MED LIST changes: -ALBUMIN (HUMAN) 25% 200 ML IV ONE
[2020-07-20] MEDS ORDERED: BENZONATATE 100 MG CAPSULE PO ONE (16:06)
== END 2020-07-20 16:33 | disposition home or self-care (01) ==
LOC: EDH 15:54
DX: B34.9 Viral infection, unspecified (principal); E11.9 Type 2 diabetes mellitus without complications; Z90.49 Acquired absence of other specified parts of digestive tract; Z91.041 Radiographic dye allergy status
CPT/HCPCS: 71045

== ENCOUNTER → 2020-07-23 | Outpatient (CLI) | payer MEDICARE ==
[~2020-07-23] MED LIST changes: +ALBUMIN (HUMAN) 25% 200 ML IV SCH
--- NOTE | 2020-07-23 09:25 | NUR ---
U/S GUIDED PARACENTESIS PROCEDURE PERFORMED BY DR. BERNARD. PUNCTURE SITE LEFT LOWER QUADRANT AND PATIENT TOLERATED PROCEDURE WELL. TOTAL REMOVED 5.0 LITERS OF YELLOW CLOUDY ASCITES FLUID. END OF PROCEDURE AT 1005. CATHETER REMOVED AND DRESSING APPLIED. NO BLEEDING NOTED. ALBUMIN 25% 50 GRAMS GIVEN IV PER ALBUMIN PROTOCOL. LEFT ANTECUBITAL PIV DC'D, BANDAID APPLIED, DRESSING DRY AND INTACT. DISCHARGE INSTRUCTIONS GIVEN TO PATIENT. PATIENT VERBALIZED UNDERSTANDING. PT DISCHARGED AMBULATORY @ 1025. PT STABLE, AAO X 3 WITH NO C/O PAIN.
[2020-07-23 10:30] LABS: HEMATOCRIT 24.6 % (36-48); MEAN CORPUSCULAR HEMOGLOBIN 31.4 pg (27.0-33.0); MEAN CORPUSCULAR HGB CONC 34.6 g/dL (32.0-36.0); MEAN CORPUSCULAR VOLUME 90.8 fL (79-99); PLATELET COUNT (AUTO) 120 K/uL (130-400); RED BLOOD CELL COUNT(AUTO) 2.71 MIL/uL (4.00-5.50); WHITE BLOOD COUNT (AUTO) 3.2 K/uL (4.8-10.8)
[2020-07-23 10:46] LABS: PROTHROMBIN TIME 10.8 SEC (9.6-11.6)
[2020-07-23 12:11] LABS: EOSINOPHILS % (MANUAL) 2 % (1-6); LYMPHOCYTES % (MANUAL) 15 % (22-44); MAN.DIFF COMMENT-IMPRESSION MANUAL DIFFERENTIAL; MONOCYTES % (MANUAL) 7 % (2-9); SEGMENTED NEUTROPHILS % 76 % (40-70)
[2020-07-23 12:14] LABS: PLATELET MORPHOLOGY COMMENT SLIGHTLY DECREASED
[2020-07-23 14:24] LABS: APPEARANCE BODY FLUID CLEAR (CLEAR); COLOR,BODY FLUID YELLOW (LT YELLOW); SPECIMENTYPE,BODY FLUID ASCITES
[2020-07-23 14:25] LABS: BODY FLUID RBC 225 /cu. mm.; BODY FLUID WBC 195 /cu. mm.; TOTAL VOLUME,BODY FLUID 5000 mL
[2020-07-23 14:30] LABS: BF LYMPHOCYTE 37 %; BF MESOTHELIAL 37 %
== END | disposition home or self-care (01) ==
LOC: RAH 08:08
PROVIDERS: ATTEND Internal Medicine Gastroenterology
DX: R18.8 Other ascites (principal); E03.9 Hypothyroidism, unspecified; K74.60 Unspecified cirrhosis of liver; K21.9 Gastro-esophageal reflux disease without esophagitis; E11.9 Type 2 diabetes mellitus without complications; E66.9 Obesity, unspecified; Z83.3 Family history of diabetes mellitus; Z82.49 Family history of ischemic heart disease and other diseases of the circulatory system; Z87.19 Personal history of other diseases of the digestive system; Z79.01 Long term (current) use of anticoagulants; Z79.899 Other long term (current) drug therapy
CPT/HCPCS: 36415; 49083; 85025; 85610; 87071; 87205; 89051; A4215; P9046

== ENCOUNTER → 2020-07-30 | Outpatient (CLI) | payer MEDICARE ==
[2020-07-30 09:52] LABS: ALBUMIN 2.6 g/dL (3.5-5.0); BILIRUBIN,TOTAL 0.9 mg/dL (0.2-1.0); CREATININE 2.2 mg/dL (0.5-1.5); TOTAL PROTEIN, SERUM 6.7 g/dL (6.0-8.3)
--- NOTE | 2020-07-30 10:15 | NUR ---
U/S GUIDED PARACENTESIS PROCEDURE PERFORMED BY DR. Destiney BLUE. PUNCTURE SITE LEFT LOWER QUADRANT AND PATIENT TOLERATED PROCEDURE WELL. TOTAL REMOVED 5.4 LITERS OF YELLOW CLOUDY ASCITES FLUID. END OF PROCEDURE AT 0945. CATHETER REMOVED AND DRESSING APPLIED. NO BLEEDING NOTED. ALBUMIN 25% 50 GRAMS GIVEN IV PER ALBUMIN PROTOCOL. LEFT ANTECUBITAL PIV DC'D, BANDAID APPLIED, DRESSING DRY AND INTACT. DISCHARGE INSTRUCTIONS GIVEN TO PATIENT. PATIENT VERBALIZED UNDERSTANDING. PT DISCHARGED AMBULATORY @ 1015. PT STABLE, AAO X 3 WITH NO C/O PAIN.
[2020-07-30 16:40] LABS: SPECIMENTYPE,BODY FLUID ASCITES
[2020-07-30 16:41] LABS: APPEARANCE BODY FLUID CLEAR (CLEAR); COLOR,BODY FLUID YELLOW (LT YELLOW); TOTAL VOLUME,BODY FLUID 5400 mL
[2020-07-30 16:43] LABS: BODY FLUID RBC 331 /cu. mm.; BODY FLUID WBC 120 /cu. mm.
[2020-07-30 17:29] LABS: BF LYMPHOCYTE 40 %; BF MONOCYTE 6 %; BF OTHER CELLS 6
== END ==
LOC: RAH 08:41
PROVIDERS: ATTEND Internal Medicine Gastroenterology
DX: R18.8 Other ascites (principal)
CPT/HCPCS: 36415; 49083; 80053; 87071; 87205; 89051; A4215; P9046; 96365

== ENCOUNTER → 2020-08-06 | Outpatient (CLI) | payer MEDICARE ==
[2020-08-06 16:43] LABS: APPEARANCE BODY FLUID SLIGHTLY CLOUDY (CLEAR); COLOR,BODY FLUID DARK YELLOW (LT YELLOW); SPECIMENTYPE,BODY FLUID ASCITES; TOTAL VOLUME,BODY FLUID 4500 mL
[2020-08-06 16:44] LABS: BODY FLUID RBC 4725 /cu. mm.; BODY FLUID WBC 173 /cu. mm.
[2020-08-06 17:11] LABS: BF LYMPHOCYTE 32 %; BF MESOTHELIAL 55 %
== END | disposition home or self-care (01) ==
LOC: RAH 08:33
PROVIDERS: ATTEND Internal Medicine Gastroenterology
DX: R18.8 Other ascites (principal); K74.60 Unspecified cirrhosis of liver; F41.9 Anxiety disorder, unspecified; E03.9 Hypothyroidism, unspecified; K21.9 Gastro-esophageal reflux disease without esophagitis; E11.9 Type 2 diabetes mellitus without complications; E66.9 Obesity, unspecified; F17.200 Nicotine dependence, unspecified, uncomplicated; G47.00 Insomnia, unspecified; Z82.3 Family history of stroke; Z83.3 Family history of diabetes mellitus; Z82.49 Family history of ischemic heart disease and other diseases of the circulatory system; Z82.5 Family history of asthma and other chronic lower respiratory diseases; Z79.01 Long term (current) use of anticoagulants; Z90.49 Acquired absence of other specified parts of digestive tract; Z98.890 Other specified postprocedural states; Z72.89 Other problems related to lifestyle; Z79.890 Hormone replacement therapy
CPT/HCPCS: 49083; 87071; 87205; 89051; A4215; P9046; 96365

== ENCOUNTER → 2020-08-13 | Outpatient (CLI) | payer MEDICARE ==
[2020-08-13 12:52] LABS: APPEARANCE BODY FLUID CLEAR (CLEAR); COLOR,BODY FLUID YELLOW (LT YELLOW); SPECIMENTYPE,BODY FLUID ASCITES; TOTAL VOLUME,BODY FLUID 6800 mL
[2020-08-13 12:53] LABS: BODY FLUID RBC 475 /cu. mm.; BODY FLUID WBC 155 /cu. mm.
[2020-08-13 13:03] LABS: BF LYMPHOCYTE 39 %; BF MESOTHELIAL 30 %; BF MONOCYTE 17 %
== END | disposition home or self-care (01) ==
LOC: RAH 08:16
PROVIDERS: ATTEND Internal Medicine Gastroenterology
DX: R18.8 Other ascites (principal); K74.60 Unspecified cirrhosis of liver; E03.9 Hypothyroidism, unspecified; K21.9 Gastro-esophageal reflux disease without esophagitis; E11.9 Type 2 diabetes mellitus without complications; E66.9 Obesity, unspecified; F17.200 Nicotine dependence, unspecified, uncomplicated; Z87.19 Personal history of other diseases of the digestive system; Z79.899 Other long term (current) drug therapy; Z98.890 Other specified postprocedural states; Z90.49 Acquired absence of other specified parts of digestive tract; Z72.89 Other problems related to lifestyle; Z83.3 Family history of diabetes mellitus; Z82.49 Family history of ischemic heart disease and other diseases of the circulatory system
CPT/HCPCS: 49083; 87071; 87205; 89051; A4215; P9046; 96365

== ENCOUNTER → 2020-08-20 | Outpatient (CLI) | payer MEDICARE ==
[2020-08-20 13:44] LABS: APPEARANCE BODY FLUID CLEAR (CLEAR); BODY FLUID WBC 372 /cu. mm.; COLOR,BODY FLUID YELLOW (LT YELLOW); SPECIMENTYPE,BODY FLUID ASCITES
[2020-08-20 13:45] LABS: BODY FLUID RBC 209 /cu. mm.
[2020-08-20 13:50] LABS: TOTAL VOLUME,BODY FLUID 5200 mL
[2020-08-20 14:28] LABS: BF LYMPHOCYTE 45 %; BF MESOTHELIAL 35 %; BF MONOCYTE 14 %
== END | disposition home or self-care (01) ==
LOC: RAH 08:23
PROVIDERS: ATTEND Internal Medicine Gastroenterology
DX: R18.8 Other ascites (principal); K74.60 Unspecified cirrhosis of liver; E03.9 Hypothyroidism, unspecified; K21.9 Gastro-esophageal reflux disease without esophagitis; E11.9 Type 2 diabetes mellitus without complications; E66.9 Obesity, unspecified; F17.200 Nicotine dependence, unspecified, uncomplicated; Z87.19 Personal history of other diseases of the digestive system; Z79.899 Other long term (current) drug therapy; Z98.890 Other specified postprocedural states; Z90.49 Acquired absence of other specified parts of digestive tract; Z72.89 Other problems related to lifestyle; Z83.3 Family history of diabetes mellitus; Z82.49 Family history of ischemic heart disease and other diseases of the circulatory system; Z79.890 Hormone replacement therapy
CPT/HCPCS: 49083; 87071; 87205; 89051; A4215; P9046

== ENCOUNTER → 2020-08-27 | Outpatient (CLI) | payer MEDICARE ==
[2020-08-27 09:17] LABS: MEAN CORPUSCULAR HEMOGLOBIN 30.3 pg (27.0-33.0); MEAN CORPUSCULAR VOLUME 89.1 fL (79-99); PLATELET COUNT (AUTO) 129 K/uL (130-400); RED BLOOD CELL COUNT(AUTO) 3.93 MIL/uL (4.00-5.50); RED CELL DISTRIBUTION WIDTH 13.4 % (11.0-15.5); WHITE BLOOD COUNT (AUTO) 5.6 K/uL (4.8-10.8)
[2020-08-27 09:30] LABS: INR 1.06 (0.85-1.15); PROTHROMBIN TIME 11.3 SEC (9.6-11.6)
[2020-08-27 09:45] LABS: ALBUMIN 2.9 g/dL (3.5-5.0); BILIRUBIN,TOTAL 1.6 mg/dL (0.2-1.0); CREATININE 1.6 mg/dL (0.5-1.5)
[2020-08-27 10:36] LABS: BAND NEUTROPHILS % (MANUAL) 1 % (0-2); LYMPHOCYTES % (MANUAL) 14 % (22-44); MAN.DIFF COMMENT-IMPRESSION MANUAL DIFFERENTIAL; MONOCYTES % (MANUAL) 4 % (2-9); PLATELET MORPHOLOGY COMMENT SLIGHTLY DECREASED; SEGMENTED NEUTROPHILS % 81 % (40-70)
[2020-08-27 13:42] LABS: APPEARANCE BODY FLUID CLEAR (CLEAR); COLOR,BODY FLUID YELLOW (LT YELLOW); SPECIMENTYPE,BODY FLUID ASCITES; TOTAL VOLUME,BODY FLUID 5500 mL
[2020-08-27 13:43] LABS: BODY FLUID RBC 302 /cu. mm.; BODY FLUID WBC 161 /cu. mm.
[2020-08-27 13:47] LABS: BF LYMPHOCYTE 57 %; BF MESOTHELIAL 31 %; BF MONOCYTE 6 %
== END ==
LOC: RAH 08:03
PROVIDERS: ATTEND Internal Medicine Gastroenterology
DX: R18.8 Other ascites (principal); K74.60 Unspecified cirrhosis of liver; I85.00 Esophageal varices without bleeding; K43.9 Ventral hernia without obstruction or gangrene; R11.0 Nausea; E03.9 Hypothyroidism, unspecified; K21.9 Gastro-esophageal reflux disease without esophagitis; E11.9 Type 2 diabetes mellitus without complications; Z90.49 Acquired absence of other specified parts of digestive tract; Z79.899 Other long term (current) drug therapy
CPT/HCPCS: 36415; 49083; 80053; 85025; 85610; 87071; 87205; 89051; A4215; P9046; 96365

== ENCOUNTER 2020-09-02 19:01 | Emergency (ER) | payer MEDICARE ==
[~2020-09-02 19:01] MED LIST changes: -ALBUMIN (HUMAN) 25% 200 ML IV SCH; -LACT10SO PO; +LACT10SO5 PO
== END 2020-09-02 20:29 | disposition home or self-care (01) ==
LOC: EDH 19:01
DX: R05 Cough (principal); J34.89 Other specified disorders of nose and nasal sinuses; R09.89 Other specified symptoms and signs involving the circulatory and respiratory systems; Z20.822 Contact with and (suspected) exposure to COVID-19; E11.9 Type 2 diabetes mellitus without complications; Z91.041 Radiographic dye allergy status
CPT/HCPCS: 87426; 99283; U0003

== ENCOUNTER → 2020-09-05 | Outpatient (CLI) | payer MEDICARE ==
[~2020-09-05] MED LIST changes: +ALBUMIN (HUMAN) 25% 200 ML IV SCH
[2020-09-05 14:11] LABS: APPEARANCE BODY FLUID CLEAR (CLEAR); BODY FLUID RBC 390 /cu. mm.; BODY FLUID WBC 175 /cu. mm.; COLOR,BODY FLUID YELLOW (LT YELLOW); SPECIMENTYPE,BODY FLUID ASCITES; TOTAL VOLUME,BODY FLUID 5700 mL
[2020-09-05 14:34] LABS: BF LYMPHOCYTE 54 %; BF MESOTHELIAL 20 %
== END | disposition home or self-care (01) ==
LOC: RAH 10:41
PROVIDERS: ATTEND Internal Medicine Gastroenterology
DX: R18.8 Other ascites (principal); K74.69 Other cirrhosis of liver; E03.9 Hypothyroidism, unspecified; E66.9 Obesity, unspecified; K21.9 Gastro-esophageal reflux disease without esophagitis; F17.200 Nicotine dependence, unspecified, uncomplicated; E11.9 Type 2 diabetes mellitus without complications; Z98.890 Other specified postprocedural states; Z90.49 Acquired absence of other specified parts of digestive tract; Z79.899 Other long term (current) drug therapy; Z79.890 Hormone replacement therapy; Z82.49 Family history of ischemic heart disease and other diseases of the circulatory system; Z83.3 Family history of diabetes mellitus; Z72.89 Other problems related to lifestyle
CPT/HCPCS: 49083; 87071; 87205; 88112; 88305; 88341 ×2; 88342; 89051; A4215; P9046; 96365

== ENCOUNTER → 2020-09-10 | Outpatient (CLI) | payer MEDICARE ==
[2020-09-10 18:00] LABS: SPECIMENTYPE,BODY FLUID ASCITES
[2020-09-10 18:01] LABS: APPEARANCE BODY FLUID SLIGHTLY CLOUDY (CLEAR); BODY FLUID WBC 132 /cu. mm.; COLOR,BODY FLUID YELLOW (LT YELLOW); TOTAL VOLUME,BODY FLUID 3200 mL
[2020-09-10 18:02] LABS: BODY FLUID RBC 487 /cu. mm.
[2020-09-10 18:25] LABS: BF LYMPHOCYTE 46 %; BF MONOCYTE 4 %; BF OTHER CELLS 13
== END | disposition home or self-care (01) ==
LOC: RAH 09:50
PROVIDERS: ATTEND Internal Medicine Gastroenterology
DX: R18.8 Other ascites (principal); K74.69 Other cirrhosis of liver; K21.9 Gastro-esophageal reflux disease without esophagitis; E03.9 Hypothyroidism, unspecified; E66.9 Obesity, unspecified; E11.9 Type 2 diabetes mellitus without complications; F17.200 Nicotine dependence, unspecified, uncomplicated; Z90.49 Acquired absence of other specified parts of digestive tract; Z98.890 Other specified postprocedural states; Z79.899 Other long term (current) drug therapy; Z79.890 Hormone replacement therapy; Z72.89 Other problems related to lifestyle; Z83.3 Family history of diabetes mellitus; Z82.49 Family history of ischemic heart disease and other diseases of the circulatory system
CPT/HCPCS: 49083; 87071; 87205; 88112; 88305; 88341; 88342; 89051; A4215; P9046; 96365

== ENCOUNTER → 2020-09-17 | Outpatient (CLI) | payer MEDICARE ==
[2020-09-17 13:44] LABS: APPEARANCE BODY FLUID CLEAR (CLEAR); BODY FLUID RBC 395 /cu. mm.; BODY FLUID WBC 245 /cu. mm.; COLOR,BODY FLUID YELLOW (LT YELLOW); SPECIMENTYPE,BODY FLUID ASCITES; TOTAL VOLUME,BODY FLUID 4500 mL
[2020-09-17 13:55] LABS: BF LYMPHOCYTE 35 %; BF MESOTHELIAL 53 %
== END | disposition home or self-care (01) ==
LOC: RAH 09:52
PROVIDERS: ATTEND Internal Medicine Gastroenterology
DX: R18.8 Other ascites (principal); K74.69 Other cirrhosis of liver; K21.9 Gastro-esophageal reflux disease without esophagitis; D64.9 Anemia, unspecified; E11.9 Type 2 diabetes mellitus without complications; E03.9 Hypothyroidism, unspecified; E66.9 Obesity, unspecified; K42.9 Umbilical hernia without obstruction or gangrene; I85.00 Esophageal varices without bleeding; F17.200 Nicotine dependence, unspecified, uncomplicated; Z98.890 Other specified postprocedural states; Z90.49 Acquired absence of other specified parts of digestive tract; Z82.49 Family history of ischemic heart disease and other diseases of the circulatory system; Z83.3 Family history of diabetes mellitus; Z79.899 Other long term (current) drug therapy; Z72.89 Other problems related to lifestyle
CPT/HCPCS: 49083; 89051; A4215; P9046; 96365

== ENCOUNTER → 2020-09-24 | Outpatient (CLI) | payer MEDICARE ==
[2020-09-24 13:54] LABS: APPEARANCE BODY FLUID SLIGHTLY CLOUDY (CLEAR); BODY FLUID WBC 186 /cu. mm.; COLOR,BODY FLUID YELLOW (LT YELLOW); SPECIMENTYPE,BODY FLUID ASCITES; TOTAL VOLUME,BODY FLUID 5800 mL
[2020-09-24 13:56] LABS: BODY FLUID RBC 304 /cu. mm.
[2020-09-24 13:59] LABS: BF LYMPHOCYTE 58 %; BF MESOTHELIAL 10 %; BF MONOCYTE 9 %
== END | disposition home or self-care (01) ==
LOC: RAH 09:00
PROVIDERS: ATTEND Internal Medicine Gastroenterology
DX: R18.8 Other ascites (principal); K21.9 Gastro-esophageal reflux disease without esophagitis; E03.9 Hypothyroidism, unspecified; E11.9 Type 2 diabetes mellitus without complications; F41.9 Anxiety disorder, unspecified; F17.200 Nicotine dependence, unspecified, uncomplicated; Z79.01 Long term (current) use of anticoagulants; Z79.899 Other long term (current) drug therapy; Z90.49 Acquired absence of other specified parts of digestive tract
CPT/HCPCS: 49083; 89051; 96374; A4215; P9046; 96365

== ENCOUNTER → 2020-10-01 | Outpatient (CLI) | payer MEDICARE ==
[2020-10-01 10:40] LABS: BASOPHILS % (AUTO) 0.5 % (0.0-5.0); EOSINOPHILS % (AUTO) 2.8 % (0.0-8.0); LYMPHOCYTES % (AUTO) 10.6 % (21.0-51.0); MEAN CORPUSCULAR HEMOGLOBIN 29.1 pg (27.0-33.0); MEAN CORPUSCULAR HGB CONC 33.5 g/dL (32.0-36.0); MEAN CORPUSCULAR VOLUME 86.8 fL (79-99); MONOCYTES % (AUTO) 4.2 % (3.0-13.0); NEUTROPHILS % (AUTO) 81.7 % (40.0-77.0); PLATELET COUNT (AUTO) 85 K/uL (130-400); RED BLOOD CELL COUNT(AUTO) 3.57 MIL/uL (4.00-5.50); RED CELL DISTRIBUTION WIDTH 13.4 % (11.0-15.5); WHITE BLOOD COUNT (AUTO) 4.3 K/uL (4.8-10.8)
[2020-10-01 10:49] LABS: INR 1.08 (0.85-1.15); PROTHROMBIN TIME 11.7 SEC (9.6-11.6)
[2020-10-01 11:04] LABS: ALBUMIN 2.8 g/dL (3.5-5.0); BILIRUBIN,TOTAL 1.1 mg/dL (0.2-1.0); CREATININE 1.5 mg/dL (0.5-1.5); TOTAL PROTEIN, SERUM 6.8 g/dL (6.0-8.3)
[2020-10-01 14:59] LABS: APPEARANCE BODY FLUID SLIGHTLY CLOUDY (CLEAR); BODY FLUID WBC 121 /cu. mm.; COLOR,BODY FLUID YELLOW (LT YELLOW); SPECIMENTYPE,BODY FLUID ASCITES; TOTAL VOLUME,BODY FLUID 7500 mL
[2020-10-01 15:00] LABS: BODY FLUID RBC 487 /cu. mm.
[2020-10-01 15:21] LABS: BF LYMPHOCYTE 61 %; BF MESOTHELIAL 25 %; BF MONOCYTE 1 %
== END | disposition home or self-care (01) ==
LOC: RAH 08:43
PROVIDERS: ATTEND Internal Medicine Gastroenterology
DX: R18.8 Other ascites (principal)
CPT/HCPCS: 36415; 49083; 80053; 85025; 85610; 89051; A4215; P9046

== ENCOUNTER → 2020-10-08 | Outpatient (CLI) | payer MEDICARE ==
[2020-10-08 13:31] LABS: APPEARANCE BODY FLUID SLIGHTLY CLOUDY (CLEAR); BODY FLUID WBC 173 /cu. mm.; COLOR,BODY FLUID YELLOW (LT YELLOW); SPECIMENTYPE,BODY FLUID ASCITES; TOTAL VOLUME,BODY FLUID 4800 mL
[2020-10-08 13:32] LABS: BODY FLUID RBC 255 /cu. mm.
[2020-10-08 13:34] LABS: BF LYMPHOCYTE 50 %; BF MONOCYTE 30 %
== END ==
LOC: RAH 09:19
PROVIDERS: ATTEND Internal Medicine Gastroenterology
DX: R18.8 Other ascites (principal); K74.60 Unspecified cirrhosis of liver; D64.9 Anemia, unspecified; I85.00 Esophageal varices without bleeding; K21.9 Gastro-esophageal reflux disease without esophagitis; K43.9 Ventral hernia without obstruction or gangrene; E11.9 Type 2 diabetes mellitus without complications; E03.9 Hypothyroidism, unspecified; Z79.899 Other long term (current) drug therapy
CPT/HCPCS: 49083; 89051; A4215; P9046; 96365

== ENCOUNTER → 2020-10-16 | Outpatient (CLI) | payer MEDICARE ==
[2020-10-16 14:19] LABS: SPECIMENTYPE,BODY FLUID ASCITES
[2020-10-16 14:20] LABS: APPEARANCE BODY FLUID CLOUDY (CLEAR); BODY FLUID RBC 350 /cu. mm.; BODY FLUID WBC 144 /cu. mm.; COLOR,BODY FLUID YELLOW (LT YELLOW); TOTAL VOLUME,BODY FLUID 7500 mL
[2020-10-16 14:24] LABS: BF LYMPHOCYTE 65 %; BF MONOCYTE 11 %
== END | disposition home or self-care (01) ==
LOC: RAH 09:58
PROVIDERS: ATTEND Internal Medicine Gastroenterology
DX: R18.8 Other ascites (principal); K74.60 Unspecified cirrhosis of liver; F17.200 Nicotine dependence, unspecified, uncomplicated; D64.9 Anemia, unspecified; I85.00 Esophageal varices without bleeding; K21.9 Gastro-esophageal reflux disease without esophagitis; K43.9 Ventral hernia without obstruction or gangrene; E11.9 Type 2 diabetes mellitus without complications; E03.9 Hypothyroidism, unspecified; Z79.899 Other long term (current) drug therapy; Z72.89 Other problems related to lifestyle
CPT/HCPCS: 49083; 89051; A4215; P9046

== ENCOUNTER → 2020-10-23 | Outpatient (CLI) | payer MEDICARE ==
[2020-10-23 10:26] LABS: MEAN CORPUSCULAR HEMOGLOBIN 29.3 pg (27.0-33.0); MEAN CORPUSCULAR HGB CONC 34.5 g/dL (32.0-36.0); MEAN CORPUSCULAR VOLUME 84.8 fL (79-99); PLATELET COUNT (AUTO) 94 K/uL (130-400); RED BLOOD CELL COUNT(AUTO) 3.89 MIL/uL (4.00-5.50); RED CELL DISTRIBUTION WIDTH 13.9 % (11.0-15.5); WHITE BLOOD COUNT (AUTO) 4.8 K/uL (4.8-10.8)
[2020-10-23 10:43] LABS: ALBUMIN 2.9 g/dL (3.5-5.0); BILIRUBIN,TOTAL 1.5 mg/dL (0.2-1.0); CREATININE 1.8 mg/dL (0.5-1.5); POTASSIUM 4.4 mmol/L (3.5-5.1); TOTAL PROTEIN, SERUM 6.8 g/dL (6.0-8.3)
[2020-10-23 10:43] LABS: INR 1.09 (0.85-1.15); PROTHROMBIN TIME 11.8 SEC (9.6-11.6)
[2020-10-23 10:44] LABS: PARTIAL THROMBOPLASTIN TIME 31.6 SEC (26.3-35.5)
[2020-10-23 11:13] LABS: LYMPHOCYTES % (MANUAL) 10 % (22-44); MAN.DIFF COMMENT-IMPRESSION MANUAL DIFFERENTIAL; MONOCYTES % (MANUAL) 4 % (2-9); SEGMENTED NEUTROPHILS % 86 % (40-70)
[2020-10-23 11:15] LABS: PLATELET MORPHOLOGY COMMENT DECREASED
[2020-10-23 15:33] LABS: APPEARANCE BODY FLUID SLIGHTLY CLOUDY (CLEAR); BODY FLUID WBC 91 /cu. mm.; COLOR,BODY FLUID YELLOW (LT YELLOW); SPECIMENTYPE,BODY FLUID ASCITES; TOTAL VOLUME,BODY FLUID 4000 mL
[2020-10-23 15:34] LABS: BODY FLUID RBC 518 /cu. mm.
[2020-10-23 16:00] LABS: BF LYMPHOCYTE 64 %; BF MONOCYTE 9 %
== END | disposition home or self-care (01) ==
LOC: RAH 10:00
PROVIDERS: ATTEND Internal Medicine Gastroenterology
DX: R18.8 Other ascites (principal); Z79.01 Long term (current) use of anticoagulants
CPT/HCPCS: 36415; 49083; 80053; 85025; 85610; 85730; 89051; A4215; 96365; P9046

== ENCOUNTER → 2020-10-29 | Outpatient (CLI) | payer MEDICARE ==
[2020-10-29 14:14] LABS: APPEARANCE BODY FLUID CLEAR (CLEAR); BODY FLUID WBC 112 /cu. mm.; COLOR,BODY FLUID YELLOW (LT YELLOW); SPECIMENTYPE,BODY FLUID ASCITES; TOTAL VOLUME,BODY FLUID 6200 mL
[2020-10-29 14:15] LABS: BODY FLUID RBC 388 /cu. mm.
[2020-10-29 14:31] LABS: BF LYMPHOCYTE 46 %; BF MESOTHELIAL 51 %
== END ==
LOC: RAH 09:46
PROVIDERS: ATTEND Internal Medicine Gastroenterology
DX: R18.8 Other ascites (principal)
CPT/HCPCS: 49083; 89051; A4215; P9046; 96365

== ENCOUNTER → 2020-11-05 | Outpatient (CLI) | payer MEDICARE ==
[~2020-11-05] MED LIST changes: +ALBUMIN (HUMAN) 25% 200 ML IV ONE; -ALBUMIN (HUMAN) 25% 200 ML IV SCH
[2020-11-05 18:00] LABS: APPEARANCE BODY FLUID CLEAR (CLEAR); BODY FLUID WBC 93 /cu. mm.; COLOR,BODY FLUID YELLOW (LT YELLOW); SPECIMENTYPE,BODY FLUID ASCITES; TOTAL VOLUME,BODY FLUID 5200 mL
[2020-11-05 18:01] LABS: BODY FLUID RBC 256 /cu. mm.
[2020-11-05 18:17] LABS: BF LYMPHOCYTE 45 %; BF MONOCYTE 3 %
== END | disposition home or self-care (01) ==
LOC: RAH 09:38
PROVIDERS: ATTEND Internal Medicine Gastroenterology
DX: R18.8 Other ascites (principal); K21.9 Gastro-esophageal reflux disease without esophagitis; E03.9 Hypothyroidism, unspecified; E11.9 Type 2 diabetes mellitus without complications; E66.9 Obesity, unspecified; F41.9 Anxiety disorder, unspecified; Z90.49 Acquired absence of other specified parts of digestive tract; Z87.891 Personal history of nicotine dependence; Z79.01 Long term (current) use of anticoagulants
CPT/HCPCS: 49083; 89051; 96365; A4215; P9046

== ENCOUNTER → 2020-11-12 | Outpatient (CLI) | payer MEDICARE ==
[~2020-11-12] MED LIST changes: -ALBUMIN (HUMAN) 25% 200 ML IV ONE; +ALBUMIN (HUMAN) 25% 200 ML IV SCH
[2020-11-12 10:55] LABS: CREATININE 1.6 mg/dL (0.5-1.5); POTASSIUM 4.3 mmol/L (3.5-5.1)
[2020-11-12 17:57] LABS: APPEARANCE BODY FLUID SLIGHTLY CLOUDY (CLEAR); COLOR,BODY FLUID YELLOW (LT YELLOW); SPECIMENTYPE,BODY FLUID ASCITES; TOTAL VOLUME,BODY FLUID 3700 mL
[2020-11-12 17:58] LABS: BODY FLUID RBC 875 /cu. mm.; BODY FLUID WBC 123 /cu. mm.
[2020-11-12 19:51] LABS: BF LYMPHOCYTE 52 %; BF MESOTHELIAL 16 %; BF MONOCYTE 5 %
== END | disposition home or self-care (01) ==
LOC: RAH 09:18
PROVIDERS: ATTEND Internal Medicine Gastroenterology
DX: R18.8 Other ascites (principal); K21.9 Gastro-esophageal reflux disease without esophagitis; E03.9 Hypothyroidism, unspecified; E11.9 Type 2 diabetes mellitus without complications; E66.9 Obesity, unspecified; F41.9 Anxiety disorder, unspecified; Z90.49 Acquired absence of other specified parts of digestive tract; Z87.891 Personal history of nicotine dependence; Z79.01 Long term (current) use of anticoagulants
CPT/HCPCS: 36415; 49083; 80048; 89051; A4215; P9046; 96365

== ENCOUNTER → 2020-11-19 | Outpatient (CLI) | payer MEDICARE ==
[2020-11-19 13:31] LABS: APPEARANCE BODY FLUID CLEAR (CLEAR); BODY FLUID RBC 301 /cu. mm.; BODY FLUID WBC 145 /cu. mm.; COLOR,BODY FLUID YELLOW (LT YELLOW); SPECIMENTYPE,BODY FLUID ASCITES; TOTAL VOLUME,BODY FLUID 6000 mL
[2020-11-19 13:43] LABS: BF LYMPHOCYTE 50 %; BF MESOTHELIAL 36 %; BF MONOCYTE 9 %
== END | disposition home or self-care (01) ==
LOC: RAH 09:51
PROVIDERS: ATTEND Internal Medicine Gastroenterology
DX: R18.8 Other ascites (principal); K74.69 Other cirrhosis of liver; K21.9 Gastro-esophageal reflux disease without esophagitis; E66.9 Obesity, unspecified; E03.9 Hypothyroidism, unspecified; E11.9 Type 2 diabetes mellitus without complications; D64.9 Anemia, unspecified; F41.9 Anxiety disorder, unspecified; Z90.49 Acquired absence of other specified parts of digestive tract; Z87.891 Personal history of nicotine dependence; Z79.899 Other long term (current) drug therapy; Z79.01 Long term (current) use of anticoagulants; Z83.3 Family history of diabetes mellitus; Z82.49 Family history of ischemic heart disease and other diseases of the circulatory system
CPT/HCPCS: 49083; 87071; 87205; 89051; A4215; P9046; 96365

== ENCOUNTER → 2020-11-26 | Outpatient (CLI) | payer MEDICARE ==
[2020-11-26 10:16] LABS: BASOPHILS % (AUTO) 0.3 % (0.0-5.0); EOSINOPHILS % (AUTO) 2.3 % (0.0-8.0); LYMPHOCYTES % (AUTO) 13.3 % (21.0-51.0); MEAN CORPUSCULAR HEMOGLOBIN 29.6 pg (27.0-33.0); MEAN CORPUSCULAR HGB CONC 33.7 g/dL (32.0-36.0); MONOCYTES % (AUTO) 5.2 % (3.0-13.0); NEUTROPHILS % (AUTO) 78.6 % (40.0-77.0); PLATELET COUNT (AUTO) 84 K/uL (130-400); RED BLOOD CELL COUNT(AUTO) 3.41 MIL/uL (4.00-5.50); RED CELL DISTRIBUTION WIDTH 14.6 % (11.0-15.5); WHITE BLOOD COUNT (AUTO) 3.8 K/uL (4.8-10.8)
[2020-11-26 10:27] LABS: INR 1.06 (0.85-1.15)
[2020-11-26 10:32] LABS: ALBUMIN 2.7 g/dL (3.5-5.0); BILIRUBIN,TOTAL 1.1 mg/dL (0.2-1.0); CREATININE 1.4 mg/dL (0.5-1.5); POTASSIUM 4.3 mmol/L (3.5-5.1); TOTAL PROTEIN, SERUM 6.3 g/dL (6.0-8.3)
[2020-11-26 15:28] LABS: APPEARANCE BODY FLUID CLEAR (CLEAR); COLOR,BODY FLUID YELLOW (LT YELLOW); SPECIMENTYPE,BODY FLUID ASCITES; TOTAL VOLUME,BODY FLUID 6000 mL
[2020-11-26 15:29] LABS: BODY FLUID WBC 90 /cu. mm.
[2020-11-26 15:30] LABS: BODY FLUID RBC 193 /cu. mm.
[2020-11-26 15:42] LABS: BF LYMPHOCYTE 77 %; BF MESOTHELIAL 16 %
== END ==
LOC: RAH 09:45
PROVIDERS: ATTEND Internal Medicine Gastroenterology
DX: R18.8 Other ascites (principal)
CPT/HCPCS: 36415; 49083; 80053; 85025; 85610; 87071; 87205; 89051; A4215; P9046; 96365

== ENCOUNTER → 2020-12-03 | Outpatient (CLI) | payer MEDICARE ==
[2020-12-03 14:26] LABS: APPEARANCE BODY FLUID CLEAR (CLEAR); BODY FLUID WBC 158 /cu. mm.; COLOR,BODY FLUID YELLOW (LT YELLOW); SPECIMENTYPE,BODY FLUID ASCITES; TOTAL VOLUME,BODY FLUID 4700 mL
[2020-12-03 14:27] LABS: BODY FLUID RBC 300 /cu. mm.
[2020-12-03 14:44] LABS: BF LYMPHOCYTE 53 %; BF MESOTHELIAL 29 %; BF MONOCYTE 17 %
== END | disposition home or self-care (01) ==
LOC: RAH 09:50
PROVIDERS: ATTEND Internal Medicine Gastroenterology
DX: R18.8 Other ascites (principal); K74.60 Unspecified cirrhosis of liver; K21.9 Gastro-esophageal reflux disease without esophagitis; E11.9 Type 2 diabetes mellitus without complications; E03.9 Hypothyroidism, unspecified; E66.9 Obesity, unspecified; F41.9 Anxiety disorder, unspecified; F17.200 Nicotine dependence, unspecified, uncomplicated; Z90.49 Acquired absence of other specified parts of digestive tract; Z98.890 Other specified postprocedural states; Z79.01 Long term (current) use of anticoagulants; Z72.89 Other problems related to lifestyle; Z83.3 Family history of diabetes mellitus; Z82.49 Family history of ischemic heart disease and other diseases of the circulatory system; Z68.33 Body mass index [BMI] 33.0-33.9, adult
CPT/HCPCS: 49083; 87071; 87205; 89051; A4215; 96365; P9046

== ENCOUNTER → 2020-12-10 | Outpatient (CLI) | payer MEDICARE ==
[2020-12-10 16:40] LABS: APPEARANCE BODY FLUID CLEAR (CLEAR); COLOR,BODY FLUID YELLOW (LT YELLOW); SPECIMENTYPE,BODY FLUID ASCITES
[2020-12-10 16:41] LABS: BODY FLUID WBC 63 /cu. mm.; TOTAL VOLUME,BODY FLUID 5000 mL
[2020-12-10 16:42] LABS: BODY FLUID RBC 325 /cu. mm.
[2020-12-10 16:52] LABS: BF LYMPHOCYTE 20 %; BF MESOTHELIAL 6 %
== END | disposition home or self-care (01) ==
LOC: RAH 09:58
PROVIDERS: ATTEND Internal Medicine Gastroenterology
DX: R18.8 Other ascites (principal); K21.9 Gastro-esophageal reflux disease without esophagitis; E03.9 Hypothyroidism, unspecified; E11.9 Type 2 diabetes mellitus without complications; E66.9 Obesity, unspecified; F41.9 Anxiety disorder, unspecified; F17.200 Nicotine dependence, unspecified, uncomplicated; D64.9 Anemia, unspecified; Z79.01 Long term (current) use of anticoagulants; Z90.49 Acquired absence of other specified parts of digestive tract; Z79.899 Other long term (current) drug therapy; K74.69 Other cirrhosis of liver; Z82.49 Family history of ischemic heart disease and other diseases of the circulatory system; Z83.3 Family history of diabetes mellitus; Z72.89 Other problems related to lifestyle
CPT/HCPCS: 49083; 87071; 87205; 89051; A4215; 96365; P9046

== ENCOUNTER → 2020-12-17 | Outpatient (CLI) | payer MEDICARE ==
[~2020-12-17] MED LIST changes: -ALBUMIN (HUMAN) 25% 200 ML IV SCH
[2020-12-17] MEDS: ALBUMIN (HUMAN) 25% 200 ML IV SCH ×2 (11:34→13:25)
[2020-12-17 13:53] LABS: APPEARANCE BODY FLUID CLOUDY (CLEAR); BODY FLUID WBC 171 /cu. mm.; COLOR,BODY FLUID YELLOW (LT YELLOW); SPECIMENTYPE,BODY FLUID ASCITES; TOTAL VOLUME,BODY FLUID 9000 mL
[2020-12-17 13:54] LABS: BODY FLUID RBC 164 /cu. mm.
[2020-12-17 14:12] LABS: BF LYMPHOCYTE 71 %; BF MONOCYTE 16 %
== END | disposition home or self-care (01) ==
LOC: RAH 09:54
PROVIDERS: ATTEND Internal Medicine Gastroenterology
DX: R18.8 Other ascites (principal); K74.69 Other cirrhosis of liver; K21.9 Gastro-esophageal reflux disease without esophagitis; E66.9 Obesity, unspecified; E03.9 Hypothyroidism, unspecified; E11.9 Type 2 diabetes mellitus without complications; D64.9 Anemia, unspecified; F41.9 Anxiety disorder, unspecified; Z87.891 Personal history of nicotine dependence; Z90.49 Acquired absence of other specified parts of digestive tract; Z79.01 Long term (current) use of anticoagulants; Z79.899 Other long term (current) drug therapy; Z83.3 Family history of diabetes mellitus; Z82.49 Family history of ischemic heart disease and other diseases of the circulatory system; Z68.33 Body mass index [BMI] 33.0-33.9, adult
CPT/HCPCS: 49083; 87071; 87205; 89051; A4215; P9046

== ENCOUNTER → 2020-12-24 | Outpatient (CLI) | payer MEDICARE ==
[~2020-12-24] MED LIST changes: +ALBUMIN (HUMAN) 25% 200 ML IV SCH
[2020-12-24 14:07] LABS: APPEARANCE BODY FLUID CLEAR (CLEAR); BODY FLUID WBC 115 /cu. mm.; COLOR,BODY FLUID YELLOW (LT YELLOW); SPECIMENTYPE,BODY FLUID ASCITES; TOTAL VOLUME,BODY FLUID 7800 mL
[2020-12-24 14:08] LABS: BODY FLUID RBC 268 /cu. mm.
[2020-12-24 14:28] LABS: BF LYMPHOCYTE 68 %; BF MESOTHELIAL 25 %
== END ==
LOC: RAH 10:12
PROVIDERS: ATTEND Internal Medicine Gastroenterology
DX: R18.8 Other ascites (principal); K74.60 Unspecified cirrhosis of liver; K21.9 Gastro-esophageal reflux disease without esophagitis; I85.00 Esophageal varices without bleeding; D64.9 Anemia, unspecified; K43.9 Ventral hernia without obstruction or gangrene; E11.9 Type 2 diabetes mellitus without complications; E03.9 Hypothyroidism, unspecified; Z79.01 Long term (current) use of anticoagulants; Z79.899 Other long term (current) drug therapy; Z90.49 Acquired absence of other specified parts of digestive tract
CPT/HCPCS: 49083; 87071; 87205; 89051; A4215; P9046; 96365

== ENCOUNTER → 2020-12-31 | Outpatient (CLI) | payer MEDICARE ==
[2020-12-31 11:07] LABS: BASOPHILS % (AUTO) 0.2 % (0.0-5.0); EOSINOPHILS % (AUTO) 3.4 % (0.0-8.0); LYMPHOCYTES % (AUTO) 13.5 % (21.0-51.0); MEAN CORPUSCULAR HGB CONC 33.3 g/dL (32.0-36.0); MEAN CORPUSCULAR VOLUME 87.1 fL (79-99); MONOCYTES % (AUTO) 4.6 % (3.0-13.0); NEUTROPHILS % (AUTO) 77.9 % (40.0-77.0); PLATELET COUNT (AUTO) 90 K/uL (130-400); RED BLOOD CELL COUNT(AUTO) 3.79 MIL/uL (4.00-5.50); RED CELL DISTRIBUTION WIDTH 14.4 % (11.0-15.5); WHITE BLOOD COUNT (AUTO) 4.7 K/uL (4.8-10.8)
[2020-12-31 11:23] LABS: ALBUMIN 2.8 g/dL (3.5-5.0); BILIRUBIN,TOTAL 1.7 mg/dL (0.2-1.0); CREATININE 1.5 mg/dL (0.5-1.5); POTASSIUM 3.9 mmol/L (3.5-5.1); TOTAL PROTEIN, SERUM 6.8 g/dL (6.0-8.3)
[2020-12-31 12:16] LABS: INR 1.05 (0.85-1.15); PROTHROMBIN TIME 11.4 SEC (9.6-11.6)
[2020-12-31 13:58] LABS: SPECIMENTYPE,BODY FLUID ASCITES
[2020-12-31 13:59] LABS: APPEARANCE BODY FLUID CLEAR (CLEAR); BODY FLUID RBC 228 /cu. mm.; BODY FLUID WBC 149 /cu. mm.; COLOR,BODY FLUID YELLOW (LT YELLOW); TOTAL VOLUME,BODY FLUID 5200 mL
[2020-12-31 14:12] LABS: BF LYMPHOCYTE 53 %; BF MESOTHELIAL 30 %; BF MONOCYTE 9 %
== END ==
LOC: RAH 09:56
PROVIDERS: ATTEND Internal Medicine Gastroenterology
DX: R18.8 Other ascites (principal)
CPT/HCPCS: 36415; 49083; 80053; 85025; 85610; 87071; 87205; 89051; A4215; P9046; 96365

== ENCOUNTER → 2021-01-07 | Outpatient (CLI) | payer MEDICARE ==
[2021-01-07 13:58] LABS: APPEARANCE BODY FLUID CLEAR (CLEAR); BODY FLUID WBC 50 /cu. mm.; COLOR,BODY FLUID YELLOW (LT YELLOW); SPECIMENTYPE,BODY FLUID ASCITES; TOTAL VOLUME,BODY FLUID 5500 mL
[2021-01-07 13:59] LABS: BODY FLUID RBC 415 /cu. mm.
[2021-01-07 14:13] LABS: BF LYMPHOCYTE 50 %; BF MESOTHELIAL 38 %
== END ==
LOC: RAH 09:57
PROVIDERS: ATTEND Internal Medicine Gastroenterology
DX: R18.8 Other ascites (principal)
CPT/HCPCS: 49083; 87071; 87205; 89051; A4215; P9046; 96365

== ENCOUNTER → 2021-01-10 | Outpatient (CLI) | payer MEDICARE ==
[2021-01-10 13:15] LABS: APPEARANCE BODY FLUID CLEAR (CLEAR); BODY FLUID RBC 531 /cu. mm.; BODY FLUID WBC 163 /cu. mm.; COLOR,BODY FLUID YELLOW (LT YELLOW); SPECIMENTYPE,BODY FLUID ASCITES; TOTAL VOLUME,BODY FLUID 3500 mL
[2021-01-10 13:32] LABS: BF LYMPHOCYTE 36 %; BF MESOTHELIAL 43 %; BF MONOCYTE 16 %
== END | disposition home or self-care (01) ==
LOC: RAH 08:47
PROVIDERS: ATTEND Internal Medicine Gastroenterology
DX: R18.8 Other ascites (principal); E03.9 Hypothyroidism, unspecified; K74.60 Unspecified cirrhosis of liver; K21.9 Gastro-esophageal reflux disease without esophagitis; E66.9 Obesity, unspecified; E11.9 Type 2 diabetes mellitus without complications; D64.9 Anemia, unspecified; F17.200 Nicotine dependence, unspecified, uncomplicated; Z90.49 Acquired absence of other specified parts of digestive tract; Z98.890 Other specified postprocedural states; Z72.89 Other problems related to lifestyle; Z83.3 Family history of diabetes mellitus; Z82.49 Family history of ischemic heart disease and other diseases of the circulatory system; Z79.890 Hormone replacement therapy; Z79.899 Other long term (current) drug therapy; Z79.01 Long term (current) use of anticoagulants
CPT/HCPCS: 49083; 87071; 87205; 89051; A4215; P9046

== ENCOUNTER → 2021-01-20 | Outpatient (CLI) | payer MEDICARE ==
[2021-01-20 12:51] LABS: APPEARANCE BODY FLUID CLEAR (CLEAR); COLOR,BODY FLUID YELLOW (LT YELLOW); SPECIMENTYPE,BODY FLUID ASCITES; TOTAL VOLUME,BODY FLUID 5200 mL
[2021-01-20 13:00] LABS: BODY FLUID RBC 486 /cu. mm.; BODY FLUID WBC 138 /cu. mm.
[2021-01-20 13:23] LABS: BF LYMPHOCYTE 49 %; BF MESOTHELIAL 28 %; BF MONOCYTE 15 %
== END | disposition home or self-care (01) ==
LOC: RAH 09:48
PROVIDERS: ATTEND Internal Medicine Gastroenterology
DX: R18.8 Other ascites (principal); K74.60 Unspecified cirrhosis of liver; E03.9 Hypothyroidism, unspecified; K21.9 Gastro-esophageal reflux disease without esophagitis; E66.9 Obesity, unspecified; D64.9 Anemia, unspecified; E11.9 Type 2 diabetes mellitus without complications; K43.9 Ventral hernia without obstruction or gangrene; F17.200 Nicotine dependence, unspecified, uncomplicated; Z79.890 Hormone replacement therapy; Z98.890 Other specified postprocedural states; Z79.4 Long term (current) use of insulin; Z90.49 Acquired absence of other specified parts of digestive tract; Z83.3 Family history of diabetes mellitus; Z82.49 Family history of ischemic heart disease and other diseases of the circulatory system; Z79.01 Long term (current) use of anticoagulants; Z72.89 Other problems related to lifestyle
CPT/HCPCS: 49083; 87071; 87205; 89051; A4215; P9047; 96365

== ENCOUNTER → 2021-01-28 | Outpatient (CLI) | payer MEDICARE ==
[2021-01-28 12:31] LABS: APPEARANCE BODY FLUID SLIGHTLY CLOUDY (CLEAR); BODY FLUID RBC 1200 /cu. mm.; BODY FLUID WBC 282 /cu. mm.; COLOR,BODY FLUID YELLOW (LT YELLOW); SPECIMENTYPE,BODY FLUID ASCITES; TOTAL VOLUME,BODY FLUID 2400 mL
[2021-01-28 13:11] LABS: BF LYMPHOCYTE 39 %; BF MESOTHELIAL 52 %; BF MONOCYTE 9 %
== END | disposition home or self-care (01) ==
LOC: RAH 10:08
PROVIDERS: ATTEND Internal Medicine Gastroenterology
DX: R18.8 Other ascites (principal); K74.60 Unspecified cirrhosis of liver; E11.9 Type 2 diabetes mellitus without complications; E03.9 Hypothyroidism, unspecified; D64.9 Anemia, unspecified; K21.9 Gastro-esophageal reflux disease without esophagitis; E66.9 Obesity, unspecified; F17.200 Nicotine dependence, unspecified, uncomplicated; Z90.49 Acquired absence of other specified parts of digestive tract; Z98.890 Other specified postprocedural states; Z72.89 Other problems related to lifestyle; Z83.3 Family history of diabetes mellitus; Z82.49 Family history of ischemic heart disease and other diseases of the circulatory system; Z79.890 Hormone replacement therapy; Z79.01 Long term (current) use of anticoagulants
CPT/HCPCS: 49083; 87071; 87205; 89051; A4215

== ENCOUNTER → 2021-02-04 | Outpatient (CLI) | payer MEDICARE ==
[~2021-02-04] MED LIST changes: -ALBUMIN (HUMAN) 25% 200 ML IV SCH
== END | disposition home or self-care (01) ==
LOC: RAH 09:35
PROVIDERS: ATTEND Internal Medicine Gastroenterology
DX: R18.8 Other ascites (principal); R14.0 Abdominal distension (gaseous)
CPT/HCPCS: 76705

== ENCOUNTER → 2021-02-11 | Outpatient (CLI) | payer MEDICARE ==
[2021-02-11 13:51] LABS: SPECIMENTYPE,BODY FLUID ASCITES
[2021-02-11 13:52] LABS: APPEARANCE BODY FLUID SLIGHTLY CLOUDY (CLEAR)
[2021-02-11 13:53] LABS: BODY FLUID WBC 173 /cu. mm.; COLOR,BODY FLUID YELLOW (LT YELLOW); TOTAL VOLUME,BODY FLUID 350 mL
[2021-02-11 13:54] LABS: BODY FLUID RBC 1025 /cu. mm.
[2021-02-11 14:04] LABS: BF LYMPHOCYTE 38 %; BF MESOTHELIAL 49 %; BF MONOCYTE 6 %; BF OTHER CELLS 6
== END | disposition home or self-care (01) ==
LOC: RAH 10:01
PROVIDERS: ATTEND Internal Medicine Gastroenterology
DX: R18.8 Other ascites (principal); K74.69 Other cirrhosis of liver; K21.9 Gastro-esophageal reflux disease without esophagitis; E03.9 Hypothyroidism, unspecified; E11.9 Type 2 diabetes mellitus without complications; E66.9 Obesity, unspecified; D64.9 Anemia, unspecified; F17.200 Nicotine dependence, unspecified, uncomplicated; Z90.49 Acquired absence of other specified parts of digestive tract; Z83.3 Family history of diabetes mellitus; Z82.49 Family history of ischemic heart disease and other diseases of the circulatory system; Z72.89 Other problems related to lifestyle; Z79.899 Other long term (current) drug therapy; Z98.890 Other specified postprocedural states; Z68.33 Body mass index [BMI] 33.0-33.9, adult
CPT/HCPCS: 49083; 87071; 87205; 89051; A4215

== ENCOUNTER → 2021-02-25 | Outpatient (CLI) | payer MEDICARE ==
[2021-02-25 09:00] LABS: BASOPHILS % (AUTO) 0.4 % (0.0-5.0); HEMATOCRIT 23.1 % (36-48); LYMPHOCYTES % (AUTO) 14.8 % (21.0-51.0); MEAN CORPUSCULAR HGB CONC 34.2 g/dL (32.0-36.0); MEAN CORPUSCULAR VOLUME 93.5 fL (79-99); MONOCYTES % (AUTO) 5.2 % (3.0-13.0); NEUTROPHILS % (AUTO) 74.8 % (40.0-77.0); PLATELET COUNT (AUTO) 99 K/uL (130-400); RED BLOOD CELL COUNT(AUTO) 2.47 MIL/uL (4.00-5.50); RED CELL DISTRIBUTION WIDTH 21.6 % (11.0-15.5); WHITE BLOOD COUNT (AUTO) 4.8 K/uL (4.8-10.8)
[2021-02-25 09:14] LABS: INR 1.02 (0.85-1.15); PROTHROMBIN TIME 11.1 SEC (9.6-11.6)
[2021-02-25 09:17] LABS: ALBUMIN 2.4 g/dL (3.5-5.0); BILIRUBIN,TOTAL 3.1 mg/dL (0.2-1.0); CREATININE 1.4 mg/dL (0.5-1.5); POTASSIUM 3.7 mmol/L (3.5-5.1); TOTAL PROTEIN, SERUM 6.4 g/dL (6.0-8.3)
[2021-02-25 13:00] LABS: APPEARANCE BODY FLUID SLIGHTLY CLOUDY (CLEAR); BODY FLUID WBC 160 /cu. mm.; COLOR,BODY FLUID DARK YELLOW (LT YELLOW); SPECIMENTYPE,BODY FLUID ASCITES; TOTAL VOLUME,BODY FLUID 2500 mL
[2021-02-25 13:01] LABS: BODY FLUID RBC 1250 /cu. mm.
[2021-02-25 13:02] LABS: BF LYMPHOCYTE 8 %; BF MESOTHELIAL 89 %; BF MONOCYTE 2 %
== END | disposition home or self-care (01) ==
LOC: RAH 08:25
PROVIDERS: ATTEND Internal Medicine Gastroenterology
DX: R18.8 Other ascites (principal); K74.69 Other cirrhosis of liver; K21.9 Gastro-esophageal reflux disease without esophagitis; E03.9 Hypothyroidism, unspecified; E11.9 Type 2 diabetes mellitus without complications; E66.9 Obesity, unspecified; D64.9 Anemia, unspecified; F17.200 Nicotine dependence, unspecified, uncomplicated; Z90.49 Acquired absence of other specified parts of digestive tract; Z83.3 Family history of diabetes mellitus; Z82.49 Family history of ischemic heart disease and other diseases of the circulatory system; Z72.89 Other problems related to lifestyle; Z79.899 Other long term (current) drug therapy; Z98.890 Other specified postprocedural states; Z68.33 Body mass index [BMI] 33.0-33.9, adult
CPT/HCPCS: 36415; 49083; 80053; 85025; 85610; 87071; 87205; 89051; A4215

== ENCOUNTER → 2021-03-11 | Outpatient (CLI) | payer MEDICARE | END | disposition home or self-care (01) | LOC: RAH 08:08 | PROVIDERS: ATTEND Internal Medicine Gastroenterology | DX: R18.8 Other ascites (principal) | CPT/HCPCS: 76705 ==

== ENCOUNTER → 2021-03-24 | Outpatient (CLI) | payer MEDICARE ==
[2021-03-24 13:58] LABS: APPEARANCE BODY FLUID CLEAR (CLEAR); BODY FLUID WBC 220 /cu. mm.; COLOR,BODY FLUID DARK YELLOW (LT YELLOW); SPECIMENTYPE,BODY FLUID ASCITES; TOTAL VOLUME,BODY FLUID 2700 mL
[2021-03-24 13:59] LABS: BODY FLUID RBC 950 /cu. mm.
[2021-03-24 14:19] LABS: BF EOSINOPHIL 1 %; BF LYMPHOCYTE 20 %; BF MESOTHELIAL 75 %; BF MONOCYTE 4 %
== END | disposition home or self-care (01) ==
LOC: RAH 09:49
PROVIDERS: ATTEND Internal Medicine Gastroenterology
DX: R18.8 Other ascites (principal); K74.69 Other cirrhosis of liver; E11.9 Type 2 diabetes mellitus without complications; E66.9 Obesity, unspecified; E03.9 Hypothyroidism, unspecified; K21.9 Gastro-esophageal reflux disease without esophagitis; D64.9 Anemia, unspecified; F17.200 Nicotine dependence, unspecified, uncomplicated; Z90.49 Acquired absence of other specified parts of digestive tract; Z83.3 Family history of diabetes mellitus; Z82.49 Family history of ischemic heart disease and other diseases of the circulatory system; Z72.89 Other problems related to lifestyle; Z79.899 Other long term (current) drug therapy; Z98.890 Other specified postprocedural states; Z68.33 Body mass index [BMI] 33.0-33.9, adult
CPT/HCPCS: 49083; 87071; 87205; 89051; C1729

== ENCOUNTER → 2021-05-08 | Outpatient (CLI) | payer MEDICARE ==
[~2021-05-08] MED LIST changes: +ALBUMIN (HUMAN) 25% 200 ML IV SCH
== END | disposition home or self-care (01) ==
LOC: RAH 09:48
PROVIDERS: ATTEND Internal Medicine Gastroenterology
DX: R18.8 Other ascites (principal)
CPT/HCPCS: 76705; P9046